=== PATIENT | male | born 1945 | race Caucasian/White ===

== ENCOUNTER → 2017-04-11 | Outpatient (CLI) | payer MEDICARE, BC ==
[~2017-04-11] MED LIST: ASPI1TAB PO; ATOR1TAB21 PO; CARV6.25 PO; CITA20TA4 PO; CITRTAB15 PO; FERR240T PO; INSUHUMDS SC; KRIL300C PO; LANTINJ4 SC; LOSA50TA20 PO; LUTE20TA PO; METF10004 PO; NOVOINJ3 SC; PROBCAP4 PO; VITA-121 PO; VITA100072 PO
[2017-04-11 10:54] LABS: ANION GAP 7 MEQ/L (8-16); BLOOD UREA NITROGEN 15 MG/DL (7-18); CALCIUM LEVEL 9.2 MG/DL (8.8-10.2); CARBON DIOXIDE LEVEL 30 MEQ/L (21-32); CHLORIDE LEVEL 101 MEQ/L (98-107); CREATININE FOR GFR 0.86 MG/DL (0.70-1.30); GLOMERULAR FILTRATION RATE > 60.0 (>42); GLUCOSE, FASTING 120 MG/DL (83-110); SODIUM LEVEL 138 MEQ/L (136-145)
--- NOTE | 2017-04-11 11:51 | REP ---
PA and lateral chest: There are no comparisons. The lung araya are clear. The cardiac size is normal The archana, mediastinum, and bony thorax are unremarkable. Impression: Negative PA and lateral chest. Signed by Jimi Lucero MD 04/11/2017 11:42 A
--- NOTE | 2017-04-11 19:21 | ECGEPIP ---
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 No prior tracing. Clinical correlation advised Electronically Signed On 04-11-2017 19:21:20 EDT by Unruly Osorio
== END ==
LOC: M LAB 09:57
PROVIDERS: ATTEND Ophthalmology
DX: Z01.818 Encounter for other preprocedural examination (principal); H25.13 Age-related nuclear cataract, bilateral

== ENCOUNTER 2017-05-05 10:19 | Day surgery (SDC) | payer MEDICARE, BC ==
--- NOTE | 2017-04-27 10:54 | CR ---
DATE OF CONSULTATION: 04/26/[address] Sykes on Toño oBwman for cataract extractions scheduled 05/09/2017 and 05/16/2017. To Dr. Sykes thank you for asking me to see Mr. Toño Bowman in preoperative consultation prior to his cataract extractions. As you know, Mr. Crystal is a 71-year-old gentleman with past medical history of coronary artery disease, insulin dependent type 2 diabetes who reports he is in his usual state of good health and denying any chest pain, palpitations, syncope or presyncope. The patient does have type 2 diabetes, diabetes. He is on Lantus and Humlog. He brings with him his own blood sugars. He does have hypoglycemic spells several times a month. He takes short-acting insulin Humalog only at supper time. His hypoglycemic spells always occur between supper time and the next morning. He is able to take sugar tabs with good results. Emergency Medical Service (EMS) has not been called. They do not have glucagon in the home The patient is quite inactive. He has chronic hip pain. Surgery has been recommended; but because he is felt to be high risk, he has not pursued this. The patient also has a history of a subarachnoid bleed in 2011. This occurred shortly after his angiogram and stents and he was on aspirin and Plavix at the same time. He reports that it is difficult to decipher how much of his left hip instability is related to arthritis versus residual stroke from the subarachnoid bleed. The patient did have a cortisone shot several months ago with Dr. Talbert and dramatically the pain in the left hip has improved. The patient does have the coronary artery disease. He denies any chest pain, palpitations, syncope or presyncope. The patient does follow with cardiology just annually The patient does have intermittent depressive symptoms regarding his multiple medical problems. He is on citalopram and feels this is adequate. The patient has history of iron deficiency anemia. He a high recent esophagogastroduodenoscopy (EGD) and colonoscopies 04/05/2016 with no significant pathology. He had been considered to have possible inflammatory bowel disease in the past, but this was not found on most recent scoped The patient's review of systems otherwise negative. Denying any fevers or chills, chest pain or shortness of breath, nausea, vomiting, change in bowels. PAST MEDICAL HISTORY: 1. Coronary artery disease 09/06, presenting with a positive stress test, treated with percutaneous transluminal coronary angioplasty (PTCA) with stents. Last stress test 01/24/2013, normal ejection fraction. 2. 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 Hypertension. 4. Type 2 diabetes insulin dependent. 5. Hyperlipidemia. 6. Depression. 7. Tobacco abuse, quit 10/06 8. Alcohol abuse, quit many years ago. 9. Obstructive sleep apnea 10. Vitamin D deficiency. 11. Left hip osteoarthritis, degenerative joint disease (DJD) advanced. not felt to be a good candidate for hip surgery. 12. Iron deficiency anemia (CORTNEY) with normal esophagogastroduodenoscopy (EGD) and colonoscopy 04/05/2016, questionable Crohn disease in the past. 13. Right arthroscopic meniscus repair 1993. 14. Tonsillectomy 1991 with soft palate removal due to sleep apnea. PATIENT'S MEDICATIONS: He is on acidophilus one daily, Dulce 180 mg by mouth daily as needed, baby aspirin 81 mg daily, atorvastatin 21 mg daily, B12 1 mg daily, carvedilol 6.25 kg one by mouth twice a day, citalopram 20 mg daily, Citrucel 500 mg tabs two by mouth twice a day, ferrous sulfate one daily, Humalog 14-20 units prior to dinner time, Lantus 44 units every p.m., losartan 50 mg daily, lutein daily, metformin 1000 mg twice a day, vitamin D 2000 international units daily. ALLERGIES: PENICILLIN. FAMILY HISTORY: Father of heart disease at 84; he had diabetes. Mother of heart disease at 54. Brother a heart disease at 54. Another brother at 45, a sister had breast cancer. SOCIAL HISTORY: The patient is retired from [employer]. He is , three adult children, two in [place] one locally. He is a former smoker and alcohol user, presently none. PHYSICAL EXAMINATION: He is a thin male in no acute distress. VITAL SIGNS: Weight 208 with a body mass index (BMI) of 28. His oxygen saturation is 95%, blood pressure 108/60, his heart rate is 62. GENERAL: No acute distress. HEAD: Normocephalic. Neck is supple. Pupils equal, reactive to light. He does wear eyeglasses. Sclerae anicteric. Conjunctivae not injected. Vision grossly intact. Tympanic membranes normal. Tongue midline. Posterior pharynx without inflammation. NECK: Supple. No thyromegaly, jugular venous distension (JVD) , carotid bruits. RESPIRATORY: Clear to auscultation, resonant to percussion. CARDIOVASCULAR: Regular rate and rhythm. No murmur, rub or gallop. ABDOMEN: Normoactive bowel sounds, soft, nontender. EXTREMITIES: No cyanosis, clubbing or edema. DERMATOLOGIC: Multiple seborrheic keratoses specifically on his back. He also has a resolving blistering rash right foot and back with a scant amount of scarring. LABORATORY DATA: 04/26/2017, the patient has a normal med profile except for sugar 147, normal complete blood count (CBC). His A1c is 6.3. His thyroid simulating hormone (TSH) is 1.5. Electrocardiogram (EKG) 04/11/2017: Sinus bradycardia rate of 58, nonspecific ST-T wave changes, axis of 85, normal MA, QRS, QTC intervals. Chest x-ray 04/11/2017: No acute disease. IMPRESSION: Mr. Toño Bowman is a 71-year-old gentleman with multiple cardiovascular risk factors including previous coronary artery disease, type 2 diabetes, hypertension, hyperlipidemia, positive family history and personal age, has no signs or symptoms indicative of cardiovascular ischemia and is felt to be at low risk for cardiovascular complications from the proposed surgical intervention, which can be further minimized by the followin. Diabetes 2, insulin dependent. He has had multiple hypoglycemic spells. I have prescribed glucagon and discussed the appropriate use of this. I will lower his usual insulin to Lantus, but only have him take his usual Lantus insulin to 40 units; but the evening prior to surgery, he will only take 20 units. I will have him hold his short acting insulin before surgery; because of recent hypoglycemia, I will direct him not to take more than 10 to 18 units prior to the evening meal. I will bring her back in six weeks to review. His A1c is excellent perhaps lower than it needs to be. He will hold his metformin for two days prior to surgical intervention. 2. Coronary artery disease clinically asymptomatic. Take carvedilol a.m. of surgery. Take losartan as usual the p.m. before surgery. Hold aspirin the a.m. of surgery. 3. Hypertension as above. 4. Iron deficiency anemia (CORTNEY) resolved. I will lower iron to every other day. I will check a complete blood count (CBC) next visit. 5. Osteoarthritis, degenerative joint disease (DJD), clinically compensated after having had a cortisone injection. He will follow with orthopedics as needed as approved the perioperative use of Tylenol. 6. Depression. I have approved the use of citalopram as usual, the evening prior to surgery 7. Vitamin D deficiency. Will hold this the a.m. of surgery. 8. History of hemorrhagic stroke. No evidence of recurrence. He does continue an aspirin, but not Plavix. I have encouraged regular activity and strengthening. He has a new walker and will pursue this. Thank you very much for this consultation. Please call with questions or concerns.
[~2017-05-05] VITALS: Ht 182.9 cm; Wt 95.7 kg
[~2017-05-05 10:19] MED LIST changes: +ACETYLCHOLINE OPHTH SOLN 1% 2ML (MIOCHOL-E) As Ordered ONE; +BALANCED SALT IRRIGATION SOLUTION 500ML BAG (FOR OR EYE MACHINE) As Ordered ONE; +DUOVISC (0.50ML VISCOAT/0.55ML PROVISC) OPHTH KIT As Ordered ONE; +LIDOCAINE 0.75%/EPINEPHRINE 0.025% IN BSS 1ML SYR INTRACAMERAL (OR ONLY) As Ordered ONE; +LR 500 ML IV ONE; +MIDAZOLAM INJ 2 MG/2 ML VIAL (J2250) As Ordered ONE; +OFLOXACIN 0.3 % (OCUFLOX) OPTH SOL 5ML XX ONE; +PHENYLEPHRINE 2.5% OPHTH SOL 2ML XX ONE; +POVIDONE-IODINE 5% OPHTH PREP SOL 30ML As Ordered ONE; +PROPARACAINE 0.5% OPHTH SOL 15ML XX ONE; +TROPICAMIDE 1% OPHTH SOLN 2ML XX ONE; +fentaNYL 100 MCG/2 ML INJECTION (J3010) As Ordered ONE
[2017-05-05 12:35] VITALS: BP 144/84
[2017-05-05] MEDS ORDERED: CEFUROXIME 1MG/0.1ML INTRACAMERAL INJ As Ordered ONE (14:28)
[2017-05-05] MEDS ORDERED: LIDOCAINE 4% TOPICAL SOLN 50 ML BTL TOP ONE (17:29)
--- NOTE | 2017-05-06 07:31 | RO ---
DATE OF PROCEDURE: 05/05/2017 PREOPERATIVE DIAGNOSIS: Visually significant nuclear sclerotic cataract right eye. POSTOPERATIVE DIAGNOSIS: Visually significant nuclear sclerotic cataract right eye. PROCEDURE: Cataract extraction with use of phacoemulsification, and placement of intraocular lens, AU00T0, 21.5 diopter. SURGEON: Dillon Sykes DO TECHNICAL DEVELOPER: ANESTHESIA: Local with monitored anesthesia care (MAC). COMPLICATIONS: None. POSTOPERATIVE CONDITION: Stable. INDICATION FOR SURGERY: Blurred vision right eye affecting patient's activities of daily living. DESCRIPTION OF PROCEDURE: The patient was seen in the preoperative area and properly identified. The correct operative eye was identified and marked. Attention was turned to that eye. The patient received topical antibiotics in the preoperative area. The patient then received topical dilating drops consisting of Tropicamide and Phenylephrine. The patient was then transferred to the operating room. The correct side was re-identified. The patient received topical anesthetics and antibiotics on the surface of the eye. The eye was prepped and draped in a sterile fashion. The upper and lower eyelids were isolated with Tegaderm tape, and the lids were held open with an adjustable speculum. Using a sideport blade, a paracentesis incision was made. Intraocular preservative-free lidocaine was then injected into the anterior chamber. Viscoelastic was then injected into the anterior chamber through the paracentesis. Using a 2.65 mm sharp-tipped keratome, the anterior chamber was entered via a temporal clear corneal incision. A continuous curvilinear capsulorrhexis was created with the aid of a 26g cystotome and utrata forceps. Hydrodissection was performed with balanced salt solution (BSS) on a blunt cannula until the nucleus was freely mobile. The crystalline lens was phacoemulsified and aspirated. Additional cohesive viscoelastic was placed into the capsular bag to deepen it. An AU00T0, 21.5 diopter lens was placed into the capsular bag and confirmed by visualizing the continuous curvilinear capsulorrhexis. Additional irrigation and aspiration was used to remove cortical material and remaining viscoelastic. The clear corneal incision was hydrated with BSS on a blunt cannula. The lens was well positioned. The incisions were then tested for leaks and found to be negative. The eye was then palpated for appropriate pressure and adjusted accordingly with BSS. The eyelid speculum was carefully removed. A shield was placed over the eye. The patient tolerated the procedure well and was discharged to the recovery unit in a stable condition. EZEQUIEL
== END 2017-05-05 12:55 | disposition home or self-care (01) ==
LOC: M SDC 10:19
PROVIDERS: ATTEND Ophthalmology
DX: H25.11 Age-related nuclear cataract, right eye (principal); I25.10 Atherosclerotic heart disease of native coronary artery without angina pectoris; E11.9 Type 2 diabetes mellitus without complications; M16.12 Unilateral primary osteoarthritis, left hip; I69.998 Other sequelae following unspecified cerebrovascular disease; D50.9 Iron deficiency anemia, unspecified; I11.9 Hypertensive heart disease without heart failure; E78.5 Hyperlipidemia, unspecified; F32.9 Major depressive disorder, single episode, unspecified; G47.30 Sleep apnea, unspecified; E55.9 Vitamin D deficiency, unspecified; Z79.82 Long term (current) use of aspirin; Z79.4 Long term (current) use of insulin; Z95.5 Presence of coronary angioplasty implant and graft; Z87.891 Personal history of nicotine dependence
CPT/HCPCS: 66984; J2250; J3010; V2632

== ENCOUNTER 2017-05-26 06:38 | Day surgery (SDC) | payer MEDICARE, BC ==
[~2017-05-26] VITALS: Ht 182.9 cm; Wt 95.7 kg
[~2017-05-26 06:38] MED LIST changes: -ACETYLCHOLINE OPHTH SOLN 1% 2ML (MIOCHOL-E) As Ordered ONE; -BALANCED SALT IRRIGATION SOLUTION 500ML BAG (FOR OR EYE MACHINE) As Ordered ONE; -DUOVISC (0.50ML VISCOAT/0.55ML PROVISC) OPHTH KIT As Ordered ONE; -LIDOCAINE 0.75%/EPINEPHRINE 0.025% IN BSS 1ML SYR INTRACAMERAL (OR ONLY) As Ordered ONE; -LR 500 ML IV ONE; -MIDAZOLAM INJ 2 MG/2 ML VIAL (J2250) As Ordered ONE; -OFLOXACIN 0.3 % (OCUFLOX) OPTH SOL 5ML XX ONE; -PHENYLEPHRINE 2.5% OPHTH SOL 2ML XX ONE; -POVIDONE-IODINE 5% OPHTH PREP SOL 30ML As Ordered ONE; -PROPARACAINE 0.5% OPHTH SOL 15ML XX ONE; -TROPICAMIDE 1% OPHTH SOLN 2ML XX ONE; -fentaNYL 100 MCG/2 ML INJECTION (J3010) As Ordered ONE
[2017-05-26] MEDS ORDERED: LR 1,000 ML IV SCH (06:45)
[2017-05-26] MEDS ORDERED: CEFUROXIME 1MG/0.1ML INTRACAMERAL INJ As Ordered ONE (06:49)
[2017-05-26] MEDS ORDERED: POVIDONE-IODINE 5% OPHTH PREP SOL 30ML As Ordered ONE (06:49)
[2017-05-26] MEDS ORDERED: ACETYLCHOLINE OPHTH SOLN 1% 2ML (MIOCHOL-E) As Ordered ONE (06:49)
[2017-05-26] MEDS ORDERED: BALANCED SALT IRRIGATION SOLUTION 500ML BAG (FOR OR EYE MACHINE) As Ordered ONE (06:49)
[2017-05-26] MEDS ORDERED: DUOVISC (0.50ML VISCOAT/0.55ML PROVISC) OPHTH KIT As Ordered ONE (06:50)
[2017-05-26] MEDS ORDERED: LIDOCAINE 0.75%/EPINEPHRINE 0.025% IN BSS 1ML SYR INTRACAMERAL (OR ONLY) As Ordered ONE (06:50)
[2017-05-26] MEDS ORDERED: PHENYLEPHRINE 2.5% OPHTH SOL 2ML OS ONE (07:00)
[2017-05-26] MEDS ORDERED: TROPICAMIDE 1% OPHTH SOLN 2ML OS ONE (07:00)
[2017-05-26] MEDS ORDERED: PROPARACAINE 0.5% OPHTH SOL 15ML OS ONE (07:00)
[2017-05-26] MEDS ORDERED: OFLOXACIN 0.3 % (OCUFLOX) OPTH SOL 5ML OS ONE (07:00)
[2017-05-26] MEDS ORDERED: OFLOXACIN 0.3 % (OCUFLOX) OPTH SOL 5ML As Ordered ONE (07:18)
[2017-05-26] MEDS ORDERED: TETRACAINE 0.5% OPHTH SOLN 4ML As Ordered ONE (07:19)
[2017-05-26] MEDS ORDERED: fentaNYL 100 MCG/2 ML INJECTION (J3010) As Ordered ONE (07:47)
[2017-05-26] MEDS ORDERED: MIDAZOLAM INJ 2 MG/2 ML VIAL (J2250) As Ordered ONE (07:47)
[2017-05-26 09:00] VITALS: BP 115/72
--- NOTE | 2017-05-27 15:24 | RO ---
DATE OF PROCEDURE: 05/26/2017 PREOPERATIVE DIAGNOSIS: Visually significant nuclear sclerotic cataract left eye. POSTOPERATIVE DIAGNOSIS: Visually significant nuclear sclerotic cataract left eye. PROCEDURE: Cataract extraction with use of phacoemulsification, and placement of intraocular lens, AU00T0, 20.5 D, left eye. SURGEON: Dillon Sykes DO SEARCH MARKETING ANALYST: ANESTHESIA: Local with monitored anesthesia care (MAC). COMPLICATIONS: None. POSTOPERATIVE CONDITION: Stable. INDICATION FOR SURGERY: Blurred vision left eye affecting patient's activities of daily living. DESCRIPTION OF PROCEDURE: The patient was seen in the preoperative area and properly identified. The correct operative eye was identified and marked. Attention was turned to that eye. The patient received topical antibiotics in the preoperative area. The patient then received topical dilating drops consisting of Tropicamide and Phenylephrine. The patient was then transferred to the operating room. The correct side was re-identified. The patient received topical anesthetics and antibiotics on the surface of the eye. The eye was prepped and draped in a sterile fashion. The upper and lower eyelids were isolated with Tegaderm tape, and the lids were held open with an adjustable speculum. Using a sideport blade, a paracentesis incision was made. Intraocular preservative-free lidocaine was then injected into the anterior chamber. Viscoelastic was then injected into the anterior chamber through the paracentesis. Using a 2.65 mm sharp-tipped keratome, the anterior chamber was entered via a temporal clear corneal incision. A continuous curvilinear capsulorrhexis was created with the aid of a 26g cystotome and utrata forceps. Hydrodissection was performed with balanced salt solution (BSS) on a blunt cannula until the nucleus was freely mobile. The crystalline lens was phacoemulsified and aspirated. Additional cohesive viscoelastic was placed into the capsular bag to deepen it. An AU00T0, 20.5 D was placed into the capsular bag and confirmed by visualizing the continuous curvilinear capsulorrhexis. Additional irrigation and aspiration was used to remove cortical material and remaining viscoelastic. The clear corneal incision was hydrated with BSS on a blunt cannula. The lens was well positioned. The incisions were then tested for leaks and found to be negative. The eye was then palpated for appropriate pressure and adjusted accordingly with BSS. The eyelid speculum was carefully removed. A shield was placed over the eye. The patient tolerated the procedure well and was discharged to the recovery unit in a stable condition. EZEQUIEL
== END 2017-05-26 09:00 | disposition home or self-care (01) ==
LOC: M SDC 06:38
PROVIDERS: ATTEND Ophthalmology
DX: H25.12 Age-related nuclear cataract, left eye (principal); E11.9 Type 2 diabetes mellitus without complications; I10 Essential (primary) hypertension; R00.1 Bradycardia, unspecified; E78.00 Pure hypercholesterolemia, unspecified; K50.90 Crohn's disease, unspecified, without complications; K57.32 Diverticulitis of large intestine without perforation or abscess without bleeding; D50.9 Iron deficiency anemia, unspecified; R23.3 Spontaneous ecchymoses; M16.0 Bilateral primary osteoarthritis of hip; R29.898 Other symptoms and signs involving the musculoskeletal system; L40.9 Psoriasis, unspecified; F32.9 Major depressive disorder, single episode, unspecified; Z88.0 Allergy status to penicillin; Z91.040 Latex allergy status; Z79.899 Other long term (current) drug therapy; Z79.82 Long term (current) use of aspirin; Z79.4 Long term (current) use of insulin; Z79.84 Long term (current) use of oral hypoglycemic drugs; Z95.818 Presence of other cardiac implants and grafts; Z87.891 Personal history of nicotine dependence
CPT/HCPCS: 66984; J2250; J3010; V2632

== ENCOUNTER → 2018-06-28 | Outpatient (CLI) | payer MEDICARE, BC | LOC: M RAD 08:15 | DX: Z12.2 Encounter for screening for malignant neoplasm of respiratory organs (principal); Z87.891 Personal history of nicotine dependence | CPT/HCPCS: G0297 ==

== ENCOUNTER → 2019-02-20 | Outpatient (REF) | payer MEDICARE, BC ==
[~2019-02-20] MED LIST changes: -ASPI1TAB PO; +ASPI81TA26 PO; -CITA20TA4 PO; +CITA20TA6 PO; -LOSA50TA20 PO; +LOSA50TA88 PO; +VITA100018 PO; -VITA100072 PO
== END ==
LOC: M LAB REF 16:56
PROVIDERS: ATTEND Physician Assistant Medical
DX: R19.7 Diarrhea, unspecified (principal)

== ENCOUNTER → 2019-02-27 | Outpatient (REF) | payer MEDICARE, BC | LOC: M LAB REF 16:30 | PROVIDERS: ATTEND Internal Medicine | DX: R19.7 Diarrhea, unspecified (principal) ==

== ENCOUNTER → 2019-02-28 | Outpatient (REF) | payer MEDICARE, BC ==
[2019-03-03 00:06] LABS: FATS NEUTRAL Normal (.); FATS TOTAL Normal (.)
== END ==
LOC: M LAB REF 13:29
PROVIDERS: ATTEND Internal Medicine
DX: R19.7 Diarrhea, unspecified (principal)

== ENCOUNTER → 2019-03-08 | Outpatient (REF) | payer MEDICARE, BC | LOC: M LAB REF 15:29 | PROVIDERS: ATTEND Internal Medicine | DX: R19.7 Diarrhea, unspecified (principal); K50.90 Crohn's disease, unspecified, without complications ==

== ENCOUNTER → 2019-07-20 | Outpatient (CLI) | payer MEDICARE, BC ==
--- NOTE | 2019-07-31 02:49 | ECWPNPC ---
PATIENT NAME: MARICHUY VALDEZ : 1945 GENDER: MALE VISIT DATE: 07/20/2019 DISCHARGE DATE: 07/20/19 1055 VISIT LOCKED DATE TIME: PHYSICIAN: EL HOLLAND MD RESOURCE: EL HOLLAND MD REASON FOR APPOINTMENT 1. HIP HISTORY OF PRESENT ILLNESS PAIN SCREENING: PATIENT HAS A COMPLAINT OF ACUTE OR CHRONIC PAIN :YES 73 YEAR OLD MALE PATIENT WITH A HISTORY OF CHRONIC RIGHT HIP PAIN. THE PATIENT DESCRIBES THE PAIN ACHING, SHARP, AND CONTINUOUS WITH A PAIN SCORE OF 5-9/10 DEPENDING ON PHYSICAL ACTIVITY. THE PATIENT STATES HIS PAIN HAS STARTED APPROXIMATELY 2 YEARS AGO. THE PATIENT SAYS HE IS BEING SEEN BY AN ORTHOPEDIC WHO IS WANTING TO DO SURGERY, BUT THE PATIENT DOES NOT WANT TO AT THIS TIME. THE PATIENT SAYS HIS PAIN IS CAUSING BALANCE ISSUES AND IS AFFECTING HIS ABILITY TO PERFORM HIS DAILY ACTIVITIES SUCH MOVING AROUND, COOKING, AND CLEANING. THE PATIENT SAYS HE HAS TRIED TRAMADOL IN THE PAST, BUT IT CAUSED SLEEPINESS FOR HIM. THE PATIENT SAYS HE IS CURRENTLY USING CBD OIL FOR HIS PAIN. THE PATIENT MENTIONS HE HAS A HISTORY OF CEREBRAL HEMORRHAGE AND HAS HAD A STENT PLACEMENT. PATIENT DENIES UNEXPLAINABLE WEIGHT LOSS, FEVER, CHILLS, NEW CHANGES ON HIS URINARY OR BOWEL CONTROL. FALL RISK SCREENING: SCREENING :NO FALLS REPORTED IN THE LAST YEAR CURRENT MEDICATIONS TAKING HUMALOG 100 UNIT/ML SOLUTION DIRECTED SUBCUTANEOUS 22 UNITS AT LUNCH, 30 UNITS AT DINNER TAKING LANTUS 100 UNIT/ML SOLUTION DIRECTED SUBCUTANEOUS BEFORE BEDTIME TAKING CITALOPRAM HYDROBROMIDE 20 MG TABLET 1 TABLET ORALLY ONCE A DAY TAKING LIPITOR 20 MG TABLET 1 TABLET ORALLY ONCE A DAY TAKING CARVEDILOL 6.25 MG TABLET 1 TABLET ORALLY DAILY TAKING CLOBETASOL PROP EMOLLIENT BASE 0.05 % CREAM 1 APPLICATION TO AFFECTED AREA EXTERNALLY DIRECTED TAKING AZELASTINE HCL 0.1 % SOLUTION 2 PUFFS IN EACH NOSTRIL NASALLY TWICE A DAY TAKING TYLENOL EXTRA STRENGTH 500 MG TABLET 1 TABLET NEEDED ORALLY EVERY 8 HRS NEEDED TAKING MAY HAVE - - 1 DROP CBD OIL ONCE DAILY MEDICATION LIST REVIEWED AND RECONCILED WITH THE PATIENT PAST MEDICAL HISTORY HYPERTENSION HYPERLIPIDEMIA DEPRESSION DIABETES CHRONIC HIP PAIN ALLERGIES SEASONAL IC PENICILLIN (FOR ALLERGIES USE ONLY) LATEX (FOR ALLERGY USE ONLY): ADHESIVES TAPES, ETC SURGICAL HISTORY TORN MENISCUS 02/1996 TONSLLECTOMY 10/1996 CEREBRAL HEMORRHAGE 02/2012 STENTS PLACED 11/2011 FAMILY HISTORY FATHER: , DIAGNOSED WITH DIABETES, HYPERTENSION MOTHER: , UNSPECIFIED HEART DISEASE SIBLINGS: DIABETES, UNSPECIFIED HEART DISEASE, OTHER MALIGNANT NEOPLASM OF UNSPECIFIED SITE PT HAS 2 SIBLINGS THAT FROM HEART ATTACK, PT HAS ONE SIBLING ALIVE THAT HAS HISTORY OF DIABETES AND BREAST CANCER. SOCIAL HISTORY GENERAL: TOBACCO USE ARE YOU A:NONSMOKER HOUSING: OWNS HOME. EDUCATION LEVEL OF EDUCATION:HIGH SCHOOL LANGUAGE LANGUAGES SPOKEN:FRISIAN RECREATIONAL DRUG USE DRUG USE?NO LEARNING BARRIERS / SPECIAL NEEDS BARRIERS TO LEARNING?NO HEARING IMPAIRED?NO VISION IMPAIRED?YES :CORRECTIVE LENSES COGNITIVELY IMPAIRED?NO PT HAS DIFFICULTY WRITING DUE TO RESULT OF CEREBRAL HEMORRHAGE READINESS TO LEARN?YES PAIN CLINIC PFS, CLERGY, PUBLIC HEALTH REFERRALS HAS THE PATIENT BEEN EDUCATED REGARDING HIS/HER PLAN OF CARE?YES HAS THE PATIENT BEEN EDUCATED REGARDING PAIN, THE RISK FOR PAIN, THE IMPORTANCE OF EFFECTIVE PAIN MANAGEMENT, AND THE PAIN ASSESSMENT PROCESS?YES LATEX QUESTIONNAIRE LATEX ALLERGY : HAVE YOU EVER DEVELOPED ANY TYPE OF REACTION AFTER HANDLING LATEX PRODUCTS SUCH RUBBER GLOVES, CONDOMS, DIAPHRAGMS, BALLOONS, SOCKS, OR UNDERWEAR?YES - PLEASE INDICATE :OTHER (DOCUMENT IN NOTES) PT STATES HE IS ALLERGIC TO ADHESIVES, TAPES, BANDAIDS, ETC CAFFEINE CAFFEINE USE?YES 1 CUP CAFFEINE DAILY ADVANCE DIRECTIVE ADVANCE DIRECTIVE DISCUSSED WITH PATIENT:YES HCP ON FILE AT [facility] JERAMY VALDEZ- [phone] CESAR ALBRIGHT -DAUGHTER [phone] SABIANIST SABIANIST NO ANGLICAN BELIEFS THAT WOULD IMPACT HEALTH CARE. MARITAL STATUS: . 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 REVIEWED WITH PATIENT 07/20/19 0945 BV. HOSPITALIZATION/MAJOR DIAGNOSTIC PROCEDURE SEE ABOVE SURGERIES REVIEW OF SYSTEMS REVIEWED BY: PROVIDER: EL HOLLAND MD . CONSTITUTIONAL: ANY CHANGE IN YOUR MEDICAL CONDITION? NO . CHILLS NO . FEVER NO . INFECTION: DO YOU HAVE NEW INFECTIONS? NO . DO YOU HAVE HISTORY OF MRSA? NO . MUSCULOSKELETAL: ANY NEW PATTERNS OF PAIN OR NUMBNESS? YES, INCREASING PAIN IN RIGHT HIP . SYTEMIC LUPUS NO . GASTROENTEROLOGY: ANY NEW CHANGE IN BOWEL CONTROL? NO . BARRETTS ESOPHAGUS NO . CIRRHOSIS NO . HEPATITIS NO . LIVER FAILURE NO . ACID REFLUX NO . UNEXPLAINED WEIGHT LOSS NO . GENITOURINARY: ANY NEW CHANGE IN BLADDER CONTROL? YES . IS THERE A CHANCE YOU COULD BE ? NO . HEMATOLOGY/LYMPH: DO YOU TAKE ANY BLOOD THINNERS? (FOR EXAMPLE- COUMADIN, PLAVIX, AGGRENOX, PLATEL, PRADAXA, OR XARELTO) NO . WHEN WAS YOUR LAST DOSE? DATE: TIME: . LOW PLATELET COUNT NO . SICKLE CELL DISEASE NO . VON WILLIEBRANDS NO . FACTOR V LEIDEN NO . THALLASEMIA NO . ANEMIA NO . EASY BRUISING NO . NEUROLOGY: HAVE YOU FALLEN IN THE PAST 12 MONTHS? YES, DUE TO LOSS OF BALANCE . ANY NEW EXTREMITY NUMBNESS OR WEAKNESS? NO . HEAD INJURY NO . DEMENTIA NO . CEREBRAL PALSY NO . MULTIPLE SCLEROSIS NO . DIZZINESS NO . HEADACHE NO . STROKES NO . VERTIGO NO . CARDIOLOGY: DO YOU HAVE A PACEMAKER OR DEFIBRILLATOR? NO . ANGINA NO . HEART ATTACK NO . HEART SURGERY STENTS PLACED . CONGESTIVE HEART FAILURE/FLUID OVERLOAD NO . CHEST PAIN NO . HIGH BLOOD PRESSURE ON MEDICATION(S) . IRREGULAR HEART BEAT NO . RESPIRATORY: HAVE YOU BEEN SICK IN THE PAST WEEK? NO . FEVER NO . FLU LIKE SYMPTOMS? NO . CPAP NO . BYPAP NO . ASTHMA NO . EMPHYSEMA NO . CHRONIC LUNG DISEASES NO . SHORTNESS OF BREATH ON EXERTION NO . COUGH NO . SNORING NO . INTEGUMENTARY: DO YOU HAVE ANY RASHES OR OPEN SORES? YES, SMALL BUMPS TO BACK THAT HE GETS ON OCCASION THAT HE TREATS WITH STEROID CREAM . ALLERGIC/IMMUNO: ARE YOU ALLERGIC TO IV DYE? NO . ANY NEW ALLERGIES? NO . PSYCHIATRIC: DO YOU HAVE THOUGHTS OF HURTING YOURSELF OR SOMEONE ELSE? NO . ARE YOU ABUSED, NEGLECTED, OR IN AN UNSAFE ENVIRONMENT? NO . ENDOCRINOLOGY: ARE YOU DIABETIC? YES, ON MEDICATION . THYROID DISORDER NO . OTHER: DO YOU NEED ANY PRESCRIPTIONS? NO . IF YES, PLEASE LIST: ____ . ANY NEW PROBLEMS WITH YOUR MEDICATIONS? NO . WHEN DID YOU LAST EAT? ____ . WHEN DID YOU LAST DRINK? ____ . WHAT DID YOU LAST DRINK? ____ . NAME OF PERSON DRIVING YOU HOME? ____ . DO YOU HAVE ANY OTHER QUESTIONS OR CONCERNS NO . VITAL SIGNS WT 221.2 LBS, HT 70 IN, BMI 31.74 INDEX, BP 115/68 MM HG, HR 66 /MIN, RR 18 /MIN, TEMP 97.2 F, OXYGEN SAT % 99%, NA INITIALS SC 09:18, REVIEWED BY: BV. EXAMINATION GENERAL EXAMINATION: PATIENT IS ALERT O X 3 AND COOPERATIVE. LUNGS CLEAR, TO AUSCULTATION. HEART: NO MURMURS OR GALLOPS; FACIAL CRANIAL NERVES ARE GROSSLY NORMAL. GOOD SYMMETRY OF FACIAL MUSCLE MOVEMENT. NORMAL VISUAL CARRASCO. PATIENT IS USING A WALKER TO AMBULATE. PATIENT HAS BALANCE ISSUES. RIGHT LEG IS WEAKER AT EXTENSION AND FLEXION. MOVEMENT OF RIGHT HIP CREATES TENDERNESS OVER THE RIGHT INGUINAL AND RIGHT THIGH AREA. RIGHT HIP X-RAY DONE ON 04/01/2016 SHOWS OSTEOPHYTOSIS AND SUBCHONDRAL SCLEROSIS. ASSESSMENTS RIGHT HIP PAIN - M25.551 (PRIMARY) OSTEOARTHRITIS OF RIGHT HIP, UNSPECIFIED OSTEOARTHRITIS TYPE - M16.[address] HIP PA[address] SCAN : HIP, [id number] CLINICAL NOTES: WE DISCUSSED SEVERAL ISSUES WITH MR. VALDEZ'S PAIN MANAGEMENT CASE. I AM ORDERING FOR A HIP CT SCAN TO RULE OUT OSTEOARTHRITIS. I AM REFERRING THE PATIENT TO PALLIATIVE CARE FOR MEDICATION MANAGEMENT AND TO CONSIDER MEDICAL MARIJUANA. THE PATIENT IS NOT INTERESTED IN OPIOIDS AND WOULD LIKE REGULAR MEDICATION MANAGEMENT. I DISCUSSED WITH THE PATIENT ABOUT THE OPTION OF A RIGHT HIP STEROID INJECTION OR COOL RADIOFREQUENCY, AND THE PATIENT SAID HE WOULD LIKE SOME TIME TO THINK ABOUT IT. THE PATIENT WILL FOLLOW UP WITH THE NURSE PRACTITIONER FOR MEDICATION IN SEVERAL WEEKS. INSTRUCTIONS WERE GIVEN, QUESTIONS WERE ANSWERED, PATIENT REPORTS UNDERSTANDING AND AGREES WITH THE PLAN. I, ANTHONY ROJAS, DOCUMENTED THE ABOVE INFORMATION ACTING A SCRIBE FOR DR. HOLLAND. I HAVE REVIEWED THE ABOVE DOCUMENT, WRITTEN BY ANTHONY BRAN AND I VERIFY THAT IT IS ACCURATE. DEAR ROMARIO SHORT MD: THANK YOU FOR YOUR KIND REFERRAL OF MARICHUY VALDEZ. IF YOU WANT TO DISCUSS HIS CASE WITH ME PLEASE CALL ME AT THE PAIN CENTER AT [phone]. SINCERELY, EL HOLLAND MD PAIN MEDICINE . OSTEOARTHRITIS OF RIGHT HIP, UNSPECIFIED OSTEOARTHRITIS TYPE CT SCAN : HIP, [id number] PROCEDURE CODES FA211 ESTABILISHED PATIENT [facility] FACILITY CHARGE G8427 CURRENT MEDS W/DOSAGES DOCUMENTED G8730 PAIN ASSESS POS TOOL F/U PLAN DOC DISPOSITION & COMMUNICATION FOLLOW UP REASON: ORDER CT SCAN/ REFER PALLIATIVE CARE ELECTRONICALLY SIGNED BY EL HOLLAND MD, MD ON 07/30/2019 AT 12:17 PM EST DISCLAIMER : THIS IS A VISIT SUMMARY EXTRACTED FROM THE [employer] CHART. IT IS NOT A COPY OF THE [employer] PROGRESS NOTE. EZEQUIEL
== END ==
LOC: M PAIN 09:00
PROVIDERS: ATTEND Anesthesiology
DX: M25.551 Pain in right hip (principal); M16.11 Unilateral primary osteoarthritis, right hip; G89.29 Other chronic pain; I10 Essential (primary) hypertension; E78.5 Hyperlipidemia, unspecified; Z86.59 Personal history of other mental and behavioral disorders; E11.9 Type 2 diabetes mellitus without complications; Z88.0 Allergy status to penicillin; Z91.040 Latex allergy status; Z79.4 Long term (current) use of insulin; Z79.899 Other long term (current) drug therapy

== ENCOUNTER → 2019-07-23 | Outpatient (CLI) | payer MEDICARE, BC ==
--- NOTE | 2019-07-23 13:59 | REP ---
Clinical: Right hip pain. Technique: Axial noncontrast images through the right hip with coronal and sagittal re-formations. Findings: Extensive severe osteoarthritic degenerative changes are appreciated. Findings include joint space obliteration, subchondral heterogeneity and cystic changes to the femoral head and acetabulum as well as chondrocalcinosis and osteophytosis. Coronal views also demonstrate superior displacement to the femoral head. No acute fracture dislocation. Surrounding soft tissues are grossly unremarkable. Impression: Severe advanced osteoarthritic degenerative changes. Electronically Signed by Rigoberto Cameron MD 07/23/2019 01:51 P
== END ==
LOC: M RAD 13:01
PROVIDERS: ATTEND Anesthesiology
DX: M25.551 Pain in right hip (principal); M16.11 Unilateral primary osteoarthritis, right hip

== ENCOUNTER → 2019-10-03 | Outpatient (CLI) | payer MEDICARE, BC ==
--- NOTE | 2019-10-17 04:50 | ECWPNPC ---
PATIENT NAME: MARICHUY VALDEZ : 1945 GENDER: MALE VISIT DATE: 10/03/2019 DISCHARGE DATE: 10/03/19 1019 VISIT LOCKED DATE TIME: PHYSICIAN: RALPH MCLEOD RESOURCE: RALPH MCLEOD REASON FOR APPOINTMENT 1. 6 WEEKS HISTORY OF PRESENT ILLNESS HISTORY OF PRESENT ILLNESS: HERE FOR F/U OF PERSISTENT RIGHT HIP PAIN.PATIENT WAS OFFERED SURGERY BUT DUE TO HIS HIGH RISK MEDICAL HISTORY PATIENT AND FAMILY HAVE OPTED FOR NON SURGICAL TREATMENT.DESCRIBES LOW BACK PAIN AND RIGHT HIP PAIN ALL DAY,SHARP AND STABBING.STATES HE IS SLEEPING OK.RATING PAIN VAS 6/10 VAS.ACCOMPANIED IN EXAM ROOM WITH .DISCUSSED MEDICATION OPTIONS.HAS HAD SIDE EFFECTS OF MENTAL CONFUSION AND LETHARGY WITH SOME NARCOTIC PAIN MEDICATION TRIALS IN THE RECENT PAST. HERE FOR FOLLOW-UP AFTER STARTING BUTRANS PATCH 2 MONTHS AGO. BUTRANS PATCH 10 MCG WAS TOO STRONG AND CAUSED SIDE EFFECTS. CURRENTLY USING BUTRANS PATCH 5 MCG AND THIS IS NOT HELPFUL. DISCUSSED TRIAL OF BELBUCA. PAIN THE PATIENT DESCRIBES THE PAIN... FALL RISK SCREENING: SCREENING :NO FALLS REPORTED IN THE LAST YEAR CURRENT MEDICATIONS TAKING HUMALOG 100 UNIT/ML SOLUTION DIRECTED SUBCUTANEOUS 22 UNITS AT LUNCH, 30 UNITS AT DINNER TAKING LANTUS 100 UNIT/ML SOLUTION DIRECTED SUBCUTANEOUS BEFORE BEDTIME TAKING CITALOPRAM HYDROBROMIDE 20 MG TABLET 1 TABLET ORALLY ONCE A DAY TAKING LIPITOR 20 MG TABLET 1 TABLET ORALLY ONCE A DAY TAKING CARVEDILOL 6.25 MG TABLET 1 TABLET ORALLY DAILY TAKING CLOBETASOL PROP EMOLLIENT BASE 0.05 % CREAM 1 APPLICATION TO AFFECTED AREA EXTERNALLY DIRECTED TAKING TYLENOL EXTRA STRENGTH 500 MG TABLET 1 TABLET NEEDED ORALLY EVERY 8 HRS NEEDED TAKING MAY HAVE - - 1 DROP CBD OIL ONCE DAILY TAKING PAZEO 0.7 % SOLUTION 1 DROP INTO AFFECTED EYE OPHTHALMIC ONCE A DAY TAKING BUTRANS 5 MCG/HR PATCH WEEKLY 1 PATCH TO SKIN TRANSDERMAL Q7 DAYS =MDD TAKING SUSTAIN 1 DROP EYE 2-3 TIMES DAILY TAKING CENTRUM ADULTS - TABLET DIRECTED ORALLY NOT-TAKING AZELASTINE HCL 0.1 % SOLUTION 2 PUFFS IN EACH NOSTRIL NASALLY TWICE A DAY MEDICATION LIST REVIEWED AND RECONCILED WITH THE PATIENT PAST MEDICAL HISTORY HYPERTENSION HYPERLIPIDEMIA DEPRESSION DIABETES CHRONIC HIP PAIN ALLERGIES SEASONAL IC PENICILLIN (FOR ALLERGIES USE ONLY) LATEX (FOR ALLERGY USE ONLY): ADHESIVES TAPES, ETC SURGICAL HISTORY TORN MENISCUS 02/1996 TONSLLECTOMY 10/1996 CEREBRAL HEMORRHAGE 02/2012 STENTS PLACED 11/2011 FAMILY HISTORY FATHER: , DIAGNOSED WITH HYPERTENSION, DIABETES MOTHER: , UNSPECIFIED HEART DISEASE SIBLINGS: OTHER MALIGNANT NEOPLASM OF UNSPECIFIED SITE, DIABETES, UNSPECIFIED HEART DISEASE PT HAS 2 SIBLINGS THAT FROM HEART ATTACK, PT HAS ONE SIBLING ALIVE THAT HAS HISTORY OF DIABETES AND BREAST CANCER. SOCIAL HISTORY GENERAL: TOBACCO USE ARE YOU A:NONSMOKER HOUSING: OWNS HOME. EDUCATION LEVEL OF EDUCATION:HIGH SCHOOL LANGUAGE LANGUAGES SPOKEN:HUNGARIAN RECREATIONAL DRUG USE DRUG USE?NO CBD OIL LEARNING BARRIERS / SPECIAL NEEDS BARRIERS TO LEARNING?NO HEARING IMPAIRED?NO VISION IMPAIRED?YES COGNITIVELY IMPAIRED?NO PT HAS DIFFICULTY WRITING DUE TO RESULT OF CEREBRAL HEMORRHAGE :CORRECTIVE LENSES READINESS TO LEARN?YES PAIN CLINIC PFS, CLERGY, PUBLIC HEALTH REFERRALS WAS THE PROVIDER NOTIFIED OF ANY PERTINENT INFO?YES HAS THE PATIENT BEEN EDUCATED REGARDING HIS/HER PLAN OF CARE?YES HAS THE PATIENT BEEN EDUCATED REGARDING PAIN, THE RISK FOR PAIN, THE IMPORTANCE OF EFFECTIVE PAIN MANAGEMENT, AND THE PAIN ASSESSMENT PROCESS?YES LATEX QUESTIONNAIRE LATEX ALLERGY : HAVE YOU EVER DEVELOPED ANY TYPE OF REACTION AFTER HANDLING LATEX PRODUCTS SUCH RUBBER GLOVES, CONDOMS, DIAPHRAGMS, BALLOONS, SOCKS, OR UNDERWEAR?YES - PLEASE INDICATE :OTHER (DOCUMENT IN NOTES) PT STATES HE IS ALLERGIC TO ADHESIVES, TAPES, BANDAIDS, ETC LATEX ALLERGY : HAVE YOU EVER DEVELOPED ANY TYPE OF REACTION DURING OR AFTER DENTAL APPOINTMENT, VAGINAL/RECTAL EXAMINATION, SURGICAL PROCEDURE, OR ANY OTHER EXPOSURE?NO LATEX RISK : HAVE YOU EVER HAD ANY DIFFICULTY BREATHING OR HIVES AFTER EATING OR HANDLING ANY FRUITS, OR VEGETABLES; SUCH KIWI, BANANAS, STONE FRUITS, OR CHESTNUTSNO LATEX RISK : DO YOU HAVE A PREVIOUS PERSONAL HISTORY OF MORE THAN NINE SURGERIES, SPINA BIFIDA, OR REPEATED CATHERIZATIONS? NO LATEX RISK : ARE YOU FREQUENTLY EXPOSED TO LATEX PRODUCTS IN YOUR OCCUPATION?NO DATE ASKED : 10/03/2019 CAFFEINE CAFFEINE USE?YES 1 CUP CAFFEINE DAILY ADVANCE DIRECTIVE ADVANCE DIRECTIVE DISCUSSED WITH PATIENT:YES HCP ON FILE AT [facility] JERAMY DOM[facility]OGAG[facility]- [phone] CESAR ALBRIGHT -DAUGHTER [phone] MANDAEISM MANDAEISM NO ORIENTAL ORTHODOX BELIEFS THAT WOULD IMPACT HEALTH CARE. MARITAL STATUS: . 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 REVIEWED WITH PATIENT 07/20/19 0945 BVREVIEWED WITH PATIENT 08/22/19 0942 JSREVIEWED WITH PATIENT 10-03-19 DS. HOSPITALIZATION/MAJOR DIAGNOSTIC PROCEDURE SEE ABOVE SURGERIES REVIEW OF SYSTEMS REVIEWED BY: PROVIDER: RALPH GOETZ . CONSTITUTIONAL: ANY CHANGE IN YOUR MEDICAL CONDITION? NO . CHILLS NO . FEVER NO . INFECTION: DO YOU HAVE NEW INFECTIONS? NO . DO YOU HAVE HISTORY OF MRSA? NO . MUSCULOSKELETAL: ANY NEW PATTERNS OF PAIN OR NUMBNESS? NO . GASTROENTEROLOGY: ANY NEW CHANGE IN BOWEL CONTROL? NO . GENITOURINARY: ANY NEW CHANGE IN BLADDER CONTROL? NO . IS THERE A CHANCE YOU COULD BE ? NO . HEMATOLOGY/LYMPH: DO YOU TAKE ANY BLOOD THINNERS? (FOR EXAMPLE- COUMADIN, PLAVIX, AGGRENOX, PLATEL, PRADAXA, OR XARELTO) NO . WHEN WAS YOUR LAST DOSE? DATE: TIME: . NEUROLOGY: HAVE YOU FALLEN IN THE PAST 12 MONTHS? NO . ANY NEW EXTREMITY NUMBNESS OR WEAKNESS? NO . CARDIOLOGY: DO YOU HAVE A PACEMAKER OR DEFIBRILLATOR? NO . RESPIRATORY: HAVE YOU BEEN SICK IN THE PAST WEEK? NO . FEVER NO . FLU LIKE SYMPTOMS? NO . COUGH NO . INTEGUMENTARY: DO YOU HAVE ANY RASHES OR OPEN SORES? NO . ALLERGIC/IMMUNO: ARE YOU ALLERGIC TO IV DYE? NO . ANY NEW ALLERGIES? NO . PSYCHIATRIC: DO YOU HAVE THOUGHTS OF HURTING YOURSELF OR SOMEONE ELSE? NO . ARE YOU ABUSED, NEGLECTED, OR IN AN UNSAFE ENVIRONMENT? NO . ENDOCRINOLOGY: ARE YOU DIABETIC? YES, FSBS 92 . OTHER: DO YOU NEED ANY PRESCRIPTIONS? INCREASE MEDS . IF YES, PLEASE LIST: ____ . ANY NEW PROBLEMS WITH YOUR MEDICATIONS? NO . WHEN DID YOU LAST EAT? ____ . WHEN DID YOU LAST DRINK? ____ . WHAT DID YOU LAST DRINK? ____ . NAME OF PERSON DRIVING YOU HOME? ____ . DO YOU HAVE ANY OTHER QUESTIONS OR CONCERNS PT USING PSEUDOSENEPHRINE FOR CONGESTION, RECOMMENDED TO USE CLARITIN OR LORATIDINE FOR CONGESTION DUE TO BP MEDS . VITAL SIGNS WT 222.2 LBS, HT 70 IN, BMI 31.88 INDEX, BP 139/65 MM HG, HR 70 /MIN, RR 18 /MIN, TEMP 96.7 F, OXYGEN SAT % 96%, SAFE IN ENV? (Y/N) Y, NA INITIALS AW 0940, REVIEWED BY: ZABRINA. EXAMINATION GENERAL EXAMINATION: GENERAL AWAKE,ALERT ,PLEASANT . PSYCH AFFECT NORMAL . LUNGS: LUNG CARRASCO ARE CLEAR TO AUSCULTATION BILATERALLY. GOOD MOVEMENT OF AIR . HEART: S1, S2 IN A REGULAR RATE AND RHYTHM. NO SIGNIFICANT MURMURS, RUBS OR GALLOPS NOTED . ASSESSMENTS RIGHT HIP PAIN - M25.551 (PRIMARY) TREATMENT RIGHT HIP PAIN STOP BUTRANS PATCH WEEKLY, 5 MCG/HR, 1 PATCH TO SKIN, TRANSDERMAL, Q7 DAYS =MDD START BELBUCA FILM, 75 MCG, 1 FILM TO THE GUM, BUCALLY, ONCE A DAY, 30 DAYS, 30, REFILLS 2 NOTES: WE ARE IN THE PROCESS OF MEDICATION TRIALS WITH MARICHUY. HISTORY OF MULTIPLE DRUG INTOLERANCES. HE IS OPPOSED TO USING C2 MEDICATIONS AND I AM RECOMMENDING CONTINUED TRIALS OF BUPRENORPHINE, A C3 ANALGESIC NOTORIOUS FOR MINIMAL SIDE EFFECTS. WILL CALL WEEKLY SO THAT WE CAN ADJUST MEDICATION BASED ON TOLERANCE AND POTENTIAL SIDE EFFECTS., ISTOP REGISTRY REVIEWED AND DEMONSTRATES COMPLLIANCE. BRINGS IN MEDICATIONS WHICH IS APPROPRIATE FOR WHAT WAS DISPENSED. RECENT URINE TOXICOLOGY REVIEWED. NO UNAUTHORIZED MEDICATIONS. NO ILLICIT SUBSTANCES AND PRESCRIBED MEDICATIONS WERE PRESENT. BUTRANS 10MCG DESTROYED PER CLINIC POLICY. PREVENTIVE MEDICINE PAIN CLINIC TEACHING: THE PATIENT HAS BEEN EDUCATED REGARDING HIS/HER PLAN OF CARE : REVIEWED AND DISCUSSED TREATMENT PLAN WITH PT AND , PT AND ACKNOWLEDGED UNDERSTANDING OF PAIN MANAGEMENT TREATMENT PLAN THE PATIENT HAS BEEN EDUCATED REGARDING PAIN, THE RISK FOR PAIN, THE IMPORTANCE OF EFFECTIVE PAIN MANAGEMENT, AND THE PAIN ASSESSMENT PROCESS. : REVIEWED AND DISCUSSED BELBUCA PAMPHLET WITH PT AND , PT AND ACKNOWLEDGE UNDERSTANDING OF MEDICATION TREATMENT. PROCEDURE CODES FA211 ESTABILISHED PATIENT [facility] CHARGE DISPOSITION & COMMUNICATION FOLLOW UP 6 WEEKS (REASON: MED MGMNT) ELECTRONICALLY SIGNED BY SOFY MONSALVE ON 10/16/2019 AT 02:58 PM EST DISCLAIMER : THIS IS A VISIT SUMMARY EXTRACTED FROM THE [employer] CHART. IT IS NOT A COPY OF THE [employer] PROGRESS NOTE. CHRISD
== END ==
LOC: M PAIN 09:45
PROVIDERS: ATTEND Nurse Practitioner Family
DX: M25.551 Pain in right hip (principal); I10 Essential (primary) hypertension; E78.5 Hyperlipidemia, unspecified; Z86.59 Personal history of other mental and behavioral disorders; E11.9 Type 2 diabetes mellitus without complications; Z88.0 Allergy status to penicillin; Z91.040 Latex allergy status; Z79.4 Long term (current) use of insulin; Z79.899 Other long term (current) drug therapy

== ENCOUNTER → 2019-11-14 | Outpatient (CLI) | payer MEDICARE, BC ==
--- NOTE | 2019-12-04 04:39 | ECWPNPC ---
PATIENT NAME: MARICHUY VALDEZ : 1945 GENDER: MALE VISIT DATE: 11/14/2019 DISCHARGE DATE: 11/14/19 1025 VISIT LOCKED DATE TIME: PHYSICIAN: RALPH MCLEOD RESOURCE: RALPH MCLEOD REASON FOR APPOINTMENT 1. 6 WEEKS HISTORY OF PRESENT ILLNESS HISTORY OF PRESENT ILLNESS: HERE FOR FOLLOW-UP AND MEDICINE MANAGEMENT FOR CHRONIC RIGHT HIP PAIN. BELBUCA 75 G TWICE A DAY WAS STARTED AT HIS LAST VISIT. HE IS DOING VERY, VERY WELL. REPORTING IMPROVED ACTIVITY TOLERANCE. RATING PAIN LEVEL A 4-5/10 VAS. REPORTING SOME CONSTIPATION. DISCUSSED USING COLACE 50 MG TWICE A DAY. PAIN THE PATIENT DESCRIBES THE PAIN... FALL RISK SCREENING: SCREENING :NO FALLS REPORTED IN THE LAST YEAR CURRENT MEDICATIONS TAKING HUMALOG 100 UNIT/ML SOLUTION DIRECTED SUBCUTANEOUS 22 UNITS AT LUNCH, 30 UNITS AT DINNER TAKING LANTUS 100 UNIT/ML SOLUTION DIRECTED SUBCUTANEOUS BEFORE BEDTIME TAKING CITALOPRAM HYDROBROMIDE 20 MG TABLET 1 TABLET ORALLY ONCE A DAY TAKING LIPITOR 20 MG TABLET 1 TABLET ORALLY ONCE A DAY TAKING CARVEDILOL 6.25 MG TABLET 1 TABLET ORALLY DAILY TAKING CLOBETASOL PROP EMOLLIENT BASE 0.05 % CREAM 1 APPLICATION TO AFFECTED AREA EXTERNALLY DIRECTED TAKING PAZEO 0.7 % SOLUTION 1 DROP INTO AFFECTED EYE OPHTHALMIC ONCE A DAY NEEDED TAKING SUSTAIN 1 DROP EYE 2-3 TIMES DAILY TAKING BELBUCA 75 MCG FILM 1 FILM TO THE GUM BUCALLY BID MDD2 TAKING COLACE CLEAR 50 MG CAPSULE 1 CAPSULE NEEDED ORALLY EVERY OTHER DAY TAKING MAGNESIUM BISGLYCINATE 100 MG TABLET 72 MG DIRECTED ORALLY BID NOT-TAKING TYLENOL EXTRA STRENGTH 500 MG TABLET 1 TABLET NEEDED ORALLY EVERY 8 HRS NEEDED NOT-TAKING MAY HAVE - - 1 DROP CBD OIL ONCE DAILY NOT-TAKING CENTRUM ADULTS - TABLET DIRECTED ORALLY NOT-TAKING AZELASTINE HCL 0.1 % SOLUTION 2 PUFFS IN EACH NOSTRIL NASALLY TWICE A DAY MEDICATION LIST REVIEWED AND RECONCILED WITH THE PATIENT PAST MEDICAL HISTORY HYPERTENSION HYPERLIPIDEMIA DEPRESSION DIABETES CHRONIC HIP PAIN ALLERGIES SEASONAL IC PENICILLIN (FOR ALLERGIES USE ONLY) LATEX (FOR ALLERGY USE ONLY): ADHESIVES TAPES, ETC SURGICAL HISTORY TORN MENISCUS 02/1996 TONSLLECTOMY 10/1996 CEREBRAL HEMORRHAGE 02/2012 STENTS PLACED 11/2011 FAMILY HISTORY FATHER: , DIAGNOSED WITH DIABETES, HYPERTENSION MOTHER: , UNSPECIFIED HEART DISEASE SIBLINGS: DIABETES, UNSPECIFIED HEART DISEASE, OTHER MALIGNANT NEOPLASM OF UNSPECIFIED SITE PT HAS 2 SIBLINGS THAT FROM HEART ATTACK, PT HAS ONE SIBLING ALIVE THAT HAS HISTORY OF DIABETES AND BREAST CANCER. SOCIAL HISTORY GENERAL: TOBACCO USE ARE YOU A:NONSMOKER HOUSING: OWNS HOME. EDUCATION LEVEL OF EDUCATION:HIGH SCHOOL LANGUAGE LANGUAGES SPOKEN:UPPER SORBIAN RECREATIONAL DRUG USE DRUG USE?NO LEARNING BARRIERS / SPECIAL NEEDS BARRIERS TO LEARNING?NO HEARING IMPAIRED?NO VISION IMPAIRED?YES COGNITIVELY IMPAIRED?NO PT HAS DIFFICULTY WRITING DUE TO RESULT OF CEREBRAL HEMORRHAGE :CORRECTIVE LENSES READINESS TO LEARN?YES PAIN CLINIC PFS, CLERGY, PUBLIC HEALTH REFERRALS WAS THE PROVIDER NOTIFIED OF ANY PERTINENT INFO?YES HAS THE PATIENT BEEN EDUCATED REGARDING HIS/HER PLAN OF CARE?YES HAS THE PATIENT BEEN EDUCATED REGARDING PAIN, THE RISK FOR PAIN, THE IMPORTANCE OF EFFECTIVE PAIN MANAGEMENT, AND THE PAIN ASSESSMENT PROCESS?YES LATEX QUESTIONNAIRE LATEX ALLERGY : HAVE YOU EVER DEVELOPED ANY TYPE OF REACTION AFTER HANDLING LATEX PRODUCTS SUCH RUBBER GLOVES, CONDOMS, DIAPHRAGMS, BALLOONS, SOCKS, OR UNDERWEAR?YES - PLEASE INDICATE :OTHER (DOCUMENT IN NOTES) PT STATES HE IS ALLERGIC TO ADHESIVES, TAPES, BANDAIDS, ETC LATEX ALLERGY : HAVE YOU EVER DEVELOPED ANY TYPE OF REACTION DURING OR AFTER DENTAL APPOINTMENT, VAGINAL/RECTAL EXAMINATION, SURGICAL PROCEDURE, OR ANY OTHER EXPOSURE?NO LATEX RISK : HAVE YOU EVER HAD ANY DIFFICULTY BREATHING OR HIVES AFTER EATING OR HANDLING ANY FRUITS, OR VEGETABLES; SUCH KIWI, BANANAS, STONE FRUITS, OR CHESTNUTSNO LATEX RISK : DO YOU HAVE A PREVIOUS PERSONAL HISTORY OF MORE THAN NINE SURGERIES, SPINA BIFIDA, OR REPEATED CATHERIZATIONS? NO LATEX RISK : ARE YOU FREQUENTLY EXPOSED TO LATEX PRODUCTS IN YOUR OCCUPATION?NO DATE ASKED : 10/03/2019 CAFFEINE CAFFEINE USE?YES 1 CUP CAFFEINE DAILY ADVANCE DIRECTIVE ADVANCE DIRECTIVE DISCUSSED WITH PATIENT:YES HCP ON FILE AT [facility]- [phone] CESAR ALBRIGHT -DAUGHTER [phone] BUDDHISM BUDDHISM NO CHEONDOISM BELIEFS THAT WOULD IMPACT HEALTH CARE. MARITAL STATUS: . 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 REVIEWED WITH PATIENT 07/20/19 6313 BVREVIEWED WITH PATIENT 08/22/19 0928 JSREVIEWED WITH PATIENT 1-8-20 DSREVIEWED WITH PATIENT 11/14/2019 0952 FRANNY. HOSPITALIZATION/MAJOR DIAGNOSTIC PROCEDURE SEE ABOVE SURGERIES REVIEW OF SYSTEMS REVIEWED BY: PROVIDER: RALPH GOETZ . CONSTITUTIONAL: ANY CHANGE IN YOUR MEDICAL CONDITION? NO . CHILLS NO . FEVER NO . INFECTION: DO YOU HAVE NEW INFECTIONS? NO . DO YOU HAVE HISTORY OF MRSA? NO . MUSCULOSKELETAL: ANY NEW PATTERNS OF PAIN OR NUMBNESS? NO . GASTROENTEROLOGY: ANY NEW CHANGE IN BOWEL CONTROL? NO . GENITOURINARY: ANY NEW CHANGE IN BLADDER CONTROL? NO . IS THERE A CHANCE YOU COULD BE ? NO . HEMATOLOGY/LYMPH: DO YOU TAKE ANY BLOOD THINNERS? (FOR EXAMPLE- COUMADIN, PLAVIX, AGGRENOX, PLATEL, PRADAXA, OR XARELTO) NO . WHEN WAS YOUR LAST DOSE? DATE: TIME: . NEUROLOGY: HAVE YOU FALLEN IN THE PAST 12 MONTHS? NO . ANY NEW EXTREMITY NUMBNESS OR WEAKNESS? NO . CARDIOLOGY: DO YOU HAVE A PACEMAKER OR DEFIBRILLATOR? NO . RESPIRATORY: HAVE YOU BEEN SICK IN THE PAST WEEK? NO . FEVER NO . FLU LIKE SYMPTOMS? NO . COUGH NO . INTEGUMENTARY: DO YOU HAVE ANY RASHES OR OPEN SORES? NO . ALLERGIC/IMMUNO: ARE YOU ALLERGIC TO IV DYE? NO . ANY NEW ALLERGIES? NO . PSYCHIATRIC: DO YOU HAVE THOUGHTS OF HURTING YOURSELF OR SOMEONE ELSE? NO . ARE YOU ABUSED, NEGLECTED, OR IN AN UNSAFE ENVIRONMENT? NO . ENDOCRINOLOGY: ARE YOU DIABETIC? YES . OTHER: DO YOU NEED ANY PRESCRIPTIONS? NO . IF YES, PLEASE LIST: ____ . ANY NEW PROBLEMS WITH YOUR MEDICATIONS? NO . WHEN DID YOU LAST EAT? ____ . WHEN DID YOU LAST DRINK? ____ . WHAT DID YOU LAST DRINK? ____ . NAME OF PERSON DRIVING YOU HOME? ____ . DO YOU HAVE ANY OTHER QUESTIONS OR CONCERNS YES, CAN IMTIAZCA BE RECEIVED THROUGH [facility]? . VITAL SIGNS WT 217.2 LBS, HT 70 IN, BMI 31.16 INDEX, BP 122/56 MM HG, HR 68 /MIN, RR 18 /MIN, TEMP 96.0 F, OXYGEN SAT % 96%, SAFE IN ENV? (Y/N) YES, NA INITIALS AW 0947, REVIEWED BY: FRANNY. EXAMINATION GENERAL EXAMINATION: GENERALAWAKE,ALERT ,PLEASANT . PSYCHAFFECT NORMAL . LUNGS:LUNG CARRASCO ARE CLEAR TO AUSCULTATION BILATERALLY. GOOD MOVEMENT OF AIR . HEART:S1, S2 IN A REGULAR RATE AND RHYTHM. NO SIGNIFICANT MURMURS, RUBS OR GALLOPS NOTED . ASSESSMENTS RIGHT HIP PAIN - M25.551 (PRIMARY) TREATMENT RIGHT HIP PAIN REFILL BELBUCA FILM, 75 MCG, 1 FILM TO THE GUM, BUCALLY, BID MDD2 3 MOS SUPPLY CAT D CHRONIC PAIN, 90 DAY(S), 180, REFILLS 1 PROCEDURE CODES FA211 ESTABILISHED PATIENT [facility] CHARGE DISPOSITION & COMMUNICATION FOLLOW UP 3 MONTHS (REASON: MED MGMNT) ELECTRONICALLY SIGNED BY SOFY MONSALVE ON 12/03/2019 AT 09:34 AM EDT DISCLAIMER : THIS IS A VISIT SUMMARY EXTRACTED FROM THE [employer] CHART. IT IS NOT A COPY OF THE [employer] PROGRESS NOTE. MTDIrena
== END ==
LOC: M PAIN 09:45
PROVIDERS: ATTEND Nurse Practitioner Family
DX: M25.551 Pain in right hip (principal); G89.29 Other chronic pain; I10 Essential (primary) hypertension; E78.5 Hyperlipidemia, unspecified; Z86.59 Personal history of other mental and behavioral disorders; E11.9 Type 2 diabetes mellitus without complications; Z88.0 Allergy status to penicillin; Z91.040 Latex allergy status; Z79.4 Long term (current) use of insulin; Z79.891 Long term (current) use of opiate analgesic; Z79.899 Other long term (current) drug therapy

== ENCOUNTER → 2020-02-12 | Outpatient (CLI) | payer MEDICARE, BC ==
--- NOTE | 2020-02-20 07:04 | ECWPNPC ---
PATIENT NAME: MARICHUY VALDEZ : 1945 GENDER: MALE VISIT DATE: 02/12/2020 DISCHARGE DATE: 02/12/20920 VISIT LOCKED DATE TIME: PHYSICIAN: RALPH MCLEOD RESOURCE: RALPH MCLEOD REASON FOR APPOINTMENT 1. HIP/MED MGMNT; [phone] PAT DONE HISTORY OF PRESENT ILLNESS HISTORY OF PRESENT ILLNESS: PATIENT IS AGREEABLE TO TELEMED VISIT VIA ZOOM. HAVING AN INCREASE IN RIGHT HIP PAIN. REPORTS THAT BELBUCA 75 MCGG TWICE A DAY IS NOT HELPING LIKE IT USED TO. RATING PAIN LEVEL A 6-8/10 VAS. DISCUSSED MEDICATION AND TREATMENT OPTIONS. PAIN THE PATIENT DESCRIBES THE PAIN... FALL RISK SCREENING: SCREENING :NO FALLS REPORTED IN THE LAST YEAR CURRENT MEDICATIONS TAKING HUMALOG 100 UNIT/ML SOLUTION DIRECTED SUBCUTANEOUS 22 UNITS AT LUNCH, 30 UNITS AT DINNER TAKING LANTUS 100 UNIT/ML SOLUTION DIRECTED SUBCUTANEOUS BEFORE BEDTIME TAKING CITALOPRAM HYDROBROMIDE 20 MG TABLET 1 TABLET ORALLY ONCE A DAY TAKING LIPITOR 20 MG TABLET 1 TABLET ORALLY ONCE A DAY TAKING CARVEDILOL 6.25 MG TABLET 1 TABLET ORALLY DAILY TAKING CLOBETASOL PROP EMOLLIENT BASE 0.05 % CREAM 1 APPLICATION TO AFFECTED AREA EXTERNALLY DIRECTED TAKING PAZEO 0.7 % SOLUTION 1 DROP INTO AFFECTED EYE OPHTHALMIC ONCE A DAY NEEDED TAKING SUSTAIN 1 DROP EYE 2-3 TIMES DAILY TAKING COLACE CLEAR 50 MG CAPSULE 1 CAPSULE NEEDED ORALLY EVERY OTHER DAY TAKING MAGNESIUM BISGLYCINATE 100 MG TABLET 72 MG DIRECTED ORALLY BID TAKING BELBUCA 75 MCG FILM 1 FILM TO THE GUM BUCALLY BID MDD2 3 MOS SUPPLY CAT D CHRONIC PAIN TAKING TYLENOL EXTRA STRENGTH 500 MG TABLET 1 TABLET NEEDED ORALLY EVERY 8 HRS NEEDED NOT-TAKING MAY HAVE - - 1 DROP CBD OIL ONCE DAILY NOT-TAKING CENTRUM ADULTS - TABLET DIRECTED ORALLY NOT-TAKING AZELASTINE HCL 0.1 % SOLUTION 2 PUFFS IN EACH NOSTRIL NASALLY TWICE A DAY MEDICATION LIST REVIEWED AND RECONCILED WITH THE PATIENT PAST MEDICAL HISTORY HYPERTENSION HYPERLIPIDEMIA DEPRESSION DIABETES CHRONIC HIP PAIN ALLERGIES SEASONAL IC PENICILLIN (FOR ALLERGIES USE ONLY) LATEX (FOR ALLERGY USE ONLY): ADHESIVES TAPES, ETC SURGICAL HISTORY TORN MENISCUS 02/1996 TONSLLECTOMY 10/1996 CEREBRAL HEMORRHAGE 02/2012 STENTS PLACED 11/2011 FAMILY HISTORY FATHER: , DIAGNOSED WITH HYPERTENSION, DIABETES MOTHER: , UNSPECIFIED HEART DISEASE SIBLINGS: DIABETES, UNSPECIFIED HEART DISEASE, OTHER MALIGNANT NEOPLASM OF UNSPECIFIED SITE PT HAS 2 SIBLINGS THAT FROM HEART ATTACK, PT HAS ONE SIBLING ALIVE THAT HAS HISTORY OF DIABETES AND BREAST CANCER. SOCIAL HISTORY GENERAL: TOBACCO USE ARE YOU A:NONSMOKER 02/12/2020 LATEX QUESTIONNAIRE LATEX ALLERGY : HAVE YOU EVER DEVELOPED ANY TYPE OF REACTION AFTER HANDLING LATEX PRODUCTS SUCH RUBBER GLOVES, CONDOMS, DIAPHRAGMS, BALLOONS, SOCKS, OR UNDERWEAR?YES - PLEASE INDICATE :OTHER (DOCUMENT IN NOTES) PT STATES HE IS ALLERGIC TO ADHESIVES, TAPES, BANDAIDS, ETC LATEX ALLERGY : HAVE YOU EVER DEVELOPED ANY TYPE OF REACTION DURING OR AFTER DENTAL APPOINTMENT, VAGINAL/RECTAL EXAMINATION, SURGICAL PROCEDURE, OR ANY OTHER EXPOSURE?NO LATEX RISK : HAVE YOU EVER HAD ANY DIFFICULTY BREATHING OR HIVES AFTER EATING OR HANDLING ANY FRUITS, OR VEGETABLES; SUCH KIWI, BANANAS, STONE FRUITS, OR CHESTNUTSNO LATEX RISK : DO YOU HAVE A PREVIOUS PERSONAL HISTORY OF MORE THAN NINE SURGERIES, SPINA BIFIDA, OR REPEATED CATHERIZATIONS? NO LATEX RISK : ARE YOU FREQUENTLY EXPOSED TO LATEX PRODUCTS IN YOUR OCCUPATION?NO DATE ASKED : 02/12/2020 LUNG CANCER SCREENING SMOKING STATUS:NON SMOKER ALCOHOL SCREENING DID YOU HAVE A DRINK CONTAINING ALCOHOL IN THE PAST YEAR?NO POINTS0 INTERPRETATIONNEGATIVE RECREATIONAL DRUG USE DRUG USE?NO CAFFEINE CAFFEINE USE?YES 1 CUP CAFFEINE DAILY LATTER DAY LATTER DAY NO QUAKER BELIEFS THAT WOULD IMPACT HEALTH CARE. 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 MARITAL STATUS: . NEW PATIENT PAIN DIARY TODAY'S VISIT 02/12/2020 PATIENT DESCRIBES PAIN :ACHING, STABBING, SORE FROM 0-10, WHAT LEVEL IS YOUR PAIN TODAY?7 PAIN WORSE AT NIGHT WHILE TRYING TO SLEEP PAIN CLINIC PFS, CLERGY, PUBLIC HEALTH REFERRALS WAS THE PROVIDER NOTIFIED OF ANY PERTINENT INFO?YES HAS THE PATIENT BEEN EDUCATED REGARDING HIS/HER PLAN OF CARE?YES HAS THE PATIENT BEEN EDUCATED REGARDING PAIN, THE RISK FOR PAIN, THE IMPORTANCE OF EFFECTIVE PAIN MANAGEMENT, AND THE PAIN ASSESSMENT PROCESS?YES HOUSING: OWNS HOME. ADVANCE DIRECTIVE ADVANCE DIRECTIVE DISCUSSED WITH PATIENT:YES HCP ON FILE AT [facility] JERAMY VALDEZ- [phone] CESAR ALBRIGHT -DAUGHTER [phone] HOSPITALIZATION/MAJOR DIAGNOSTIC PROCEDURE SEE ABOVE SURGERIES REVIEW OF SYSTEMS REVIEWED BY: PROVIDER: RALPH GOETZ . CONSTITUTIONAL: ANY CHANGE IN YOUR MEDICAL CONDITION? NO . CHILLS NO . FEVER NO . INFECTION: DO YOU HAVE NEW INFECTIONS? NO . DO YOU HAVE HISTORY OF MRSA? NO . MUSCULOSKELETAL: ANY NEW PATTERNS OF PAIN OR NUMBNESS? NO . GASTROENTEROLOGY: ANY NEW CHANGE IN BOWEL CONTROL? NO . GENITOURINARY: ANY NEW CHANGE IN BLADDER CONTROL? NO . IS THERE A CHANCE YOU COULD BE ? NO . HEMATOLOGY/LYMPH: DO YOU TAKE ANY BLOOD THINNERS? (FOR EXAMPLE- COUMADIN, PLAVIX, AGGRENOX, PLATEL, PRADAXA, OR XARELTO) NO . WHEN WAS YOUR LAST DOSE? DATE: TIME: . NEUROLOGY: HAVE YOU FALLEN IN THE PAST 12 MONTHS? NO . ANY NEW EXTREMITY NUMBNESS OR WEAKNESS? NO . CARDIOLOGY: DO YOU HAVE A PACEMAKER OR DEFIBRILLATOR? NO . RESPIRATORY: HAVE YOU BEEN SICK IN THE PAST WEEK? NO . FEVER NO . FLU LIKE SYMPTOMS? NO . COUGH NO . INTEGUMENTARY: DO YOU HAVE ANY RASHES OR OPEN SORES? NO . ALLERGIC/IMMUNO: ARE YOU ALLERGIC TO IV DYE? NO . ANY NEW ALLERGIES? NO . PSYCHIATRIC: DO YOU HAVE THOUGHTS OF HURTING YOURSELF OR SOMEONE ELSE? NO . ARE YOU ABUSED, NEGLECTED, OR IN AN UNSAFE ENVIRONMENT? NO . ENDOCRINOLOGY: ARE YOU DIABETIC? NO . OTHER: DO YOU NEED ANY PRESCRIPTIONS? NO . IF YES, PLEASE LIST: ____ . ANY NEW PROBLEMS WITH YOUR MEDICATIONS? NO . WHEN DID YOU LAST EAT? ____ . WHEN DID YOU LAST DRINK? ____ . WHAT DID YOU LAST DRINK? ____ . NAME OF PERSON DRIVING YOU HOME? ____ . DO YOU HAVE ANY OTHER QUESTIONS OR CONCERNS NO . EXAMINATION GENERAL EXAMINATION: GENERALNO ACUTE DISTRESS, WELL NOURISHED AND HYDRATED. PSYCHAPPROPRIATE MOOD AND AFFECT . FACE:UNREMARKABLE. ASSESSMENTS RIGHT HIP PAIN - M25.551 (PRIMARY) TREATMENT RIGHT HIP PAIN INCREASE BELBUCA FILM, 150 MCG, 1 FILM TO THE GUM, BUCALLY, BID MDD2 3 MOS SUPPLY CAT D CHRONIC PAIN, 90 DAY(S), 180, REFILLS 1 NOTES: ISTOP REGISTRY REVIEWED AND DEMONSTRATES COMPLLIANCE. RECENT URINE TOXICOLOGY REVIEWED. NO UNAUTHORIZED MEDICATIONS. NO ILLICIT SUBSTANCES AND PRESCRIBED MEDICATIONS WERE PRESENT. TODAY I INCREASED BELBUCA TO 150 MCGG TWICE A DAY. ADVISED TO INCREASE COLACE 100 MG 2 CAPSULES TWICE A DAY. ADVISED TO CALL CLINIC WITH ANY PROBLEMS. BRIEFLY DISCUSS COOL RF FOR RIGHT HIP PAIN. FOLLOW-UP IN PAIN CLINIC IN 3 MONTHS. TOTAL TIME SPENT DURING TELEMED VISIT WAS APPROXIMATELY 15 MINUTES. OTHERS CLINICAL NOTES: VITALS UNABLE TO BE OBTAINED DUE TO TELEMEDICINE VISIT. DISPOSITION & COMMUNICATION FOLLOW UP 3 MONTHS IN CLINIC (REASON: RIGHT HIP PAIN/MEDICINE MANAGEMENT) ELECTRONICALLY SIGNED BY SOFY MONSALVE ON 02/19/2020 AT 03:45 PM EDT DISCLAIMER : THIS IS A VISIT SUMMARY EXTRACTED FROM THE [employer] CHART. IT IS NOT A COPY OF THE [employer] PROGRESS NOTE. EZEQUIEL
== END ==
LOC: M PAIN 09:30 → M TMPAIN 09:30
PROVIDERS: ATTEND Nurse Practitioner Family
DX: M25.551 Pain in right hip (principal); E11.9 Type 2 diabetes mellitus without complications; I10 Essential (primary) hypertension; Z79.4 Long term (current) use of insulin; Z79.899 Other long term (current) drug therapy; Z88.0 Allergy status to penicillin; Z91.040 Latex allergy status

== ENCOUNTER 2020-05-19 10:01 | Day surgery (SDC) | payer MEDICARE, BC ==
[~2020-05-19] VITALS: Ht 182.9 cm; Wt 89.7 kg
[~2020-05-19 10:01] MED LIST changes: +ONDA-83 PO; +[UNRECOGNIZED DRUG - CODE] PO
[2020-05-19] MEDS ORDERED: propofoL 200 MG/20 ML VIAL As Ordered ONE (11:24)
[2020-05-19] MEDS ORDERED: LIDOCAINE 2% 100MG/5ML SDV (FOR ANES.) As Ordered ONE (11:24)
[2020-05-19] MEDS ORDERED: fentaNYL 100 MCG/2 ML INJECTION (J3010) As Ordered ONE (11:25)
[2020-05-19 12:10] VITALS: BP 139/70
--- NOTE | 2020-06-04 11:30 | ROOR ---
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 Procedure: Pre-Anesthesia Assessment: - The heart rate, respiratory rate, oxygen saturations, blood pressure, adequacy of pulmonary ventilation, and response to care were monitored throughout the procedure. The Endoscope was introduced through the mouth, and advanced to the second part of duodenum. The upper GI endoscopy was accomplished without difficulty. The patient tolerated the procedure well. Findings: The Z-line was irregular and was found 40 cm from the incisors. No other significant abnormalities were identified in a careful examination of the stomach. Biopsies were taken with a cold forceps in the gastric antrum for Helicobacter pylori testing. The exam of the duodenum was otherwise normal. Impression: - Z-line irregular, 40 cm from the incisors. - Biopsies were taken with a cold forceps for Helicobacter pylori testing. - The examination was otherwise normal. Recommendation: - Patient has a contact number available for emergencies. The signs and symptoms of potential delayed complications were discussed with the patient. Return to normal activities tomorrow. Written discharge instructions were provided to the patient. - High fiber diet. - Discharge patient to home. - Continue present medications. - Await pathology results. - Telephone GI clinic for pathology results in 1 week. - Return to referring physician. - The findings and recommendations were discussed with the patient. Cornell Sykes MD 05/19/2020 11:38:18 AM Number of Addenda: 0 Note Initiated On: 05/19/2020 10:44 AM Estimated Blood Loss: Estimated blood loss: none.
== END 2020-05-19 12:12 | disposition home or self-care (01) ==
LOC: M OPP 10:01
PROVIDERS: ATTEND Internal Medicine Gastroenterology
DX: K22.8 Other specified diseases of esophagus (principal); R10.13 Epigastric pain; R11.2 Nausea with vomiting, unspecified; E11.9 Type 2 diabetes mellitus without complications; I51.9 Heart disease, unspecified; Z79.4 Long term (current) use of insulin; Z79.899 Other long term (current) drug therapy; Z88.0 Allergy status to penicillin; Z91.040 Latex allergy status; Z87.891 Personal history of nicotine dependence; Z86.79 Personal history of other diseases of the circulatory system; Z95.5 Presence of coronary angioplasty implant and graft
CPT/HCPCS: 43239; 88305; J3010

== ENCOUNTER → 2020-10-30 | Outpatient (REF) | payer MEDICARE | LOC: M LAB REF 12:44 | PROVIDERS: ATTEND Internal Medicine | DX: Z01.89 Encounter for other specified special examinations (principal) ==

== ENCOUNTER → 2021-02-04 | Outpatient (CLI) | payer MEDICARE ==
--- NOTE | 2021-02-04 16:25 | REP ---
INDICATION: INCREASING URINARY INCONT. COMPARISON: None. TECHNIQUE: Five views lumbosacral spine. FINDINGS: There is no compression fracture or malalignment. There is normal lumbar lordosis. There is mild diffuse spurring. There is mild disc space narrowing and subchondral sclerosis at all levels. There is sclerosis and spurring at the posterior facet joints diffusely as well. The posterior elements are intact. There is mild curvature toward the left. IMPRESSION: Diffuse degenerative changes. No fracture or dislocation. <Electronically signed by Jimi Sigala > 02/04/21 [id number]
== END ==
LOC: M WUC 15:14
PROVIDERS: ATTEND Internal Medicine
DX: R32 Unspecified urinary incontinence (principal); M25.78 Osteophyte, vertebrae

== ENCOUNTER → 2021-02-21 | Outpatient (REF) | payer MEDICARE | LOC: M LAB REF 18:16 | PROVIDERS: ATTEND Physician Assistant | DX: R30.0 Dysuria (principal) ==

== ENCOUNTER → 2021-03-19 | Outpatient (REF) | payer MEDICARE, BC ==
[2021-03-19 17:39] LABS: APPEARANCE, URINE CLOUDY (CLEAR); BACTERIA, URINE AUTO 1+ (NEGATIVE); BILIRUBIN, URINE AUTO NEGATIVE (NEGATIVE); BLOOD, URINE BLOOD 1+ (NEGATIVE); COLOR, URINE YELLOW (YELLOW); GLUCOSE, URINE (UA) AUTO NEGATIVE (NEGATIVE); KETONE, URINE AUTO NEGATIVE (NEGATIVE); LEUKOCYTE ESTERASE, URINE AUTO 3+ (NEGATIVE); NITRITE, URINE AUTO NEGATIVE (NEGATIVE); PROTEIN, URINE AUTO NEGATIVE (NEGATIVE); RBC, URINE AUTO 5 /HPF (0-3); SPECIFIC GRAVITY URINE AUTO 1.009 (1.002-1.035); SQUAMOUS EPITHELIAL CELL UR AU 0 /HPF (0-6); UROBILINOGEN, URINE AUTO 0.2 mg/dL (0.0-2.0); WBC, URINE AUTO TNTC /HPF (0-3)
== END ==
LOC: M SMT 17:10
PROVIDERS: ATTEND Nurse Practitioner Family
DX: R32 Unspecified urinary incontinence (principal)

== ENCOUNTER → 2021-05-22 | Outpatient (REF) | payer MEDICARE, BC ==
[2021-05-22 14:15] LABS: APPEARANCE, URINE CLOUDY (CLEAR); BACTERIA, URINE AUTO 1+ (NEGATIVE); BILIRUBIN, URINE AUTO NEGATIVE (NEGATIVE); BLOOD, URINE BLOOD 1+ (NEGATIVE); COLOR, URINE YELLOW (YELLOW); GLUCOSE, URINE (UA) AUTO NEGATIVE (NEGATIVE); KETONE, URINE AUTO NEGATIVE (NEGATIVE); LEUKOCYTE ESTERASE, URINE AUTO 3+ (NEGATIVE); NITRITE, URINE AUTO NEGATIVE (NEGATIVE); PROTEIN, URINE AUTO NEGATIVE (NEGATIVE); RBC, URINE AUTO 10 /HPF (0-3); SPECIFIC GRAVITY URINE AUTO 1.009 (1.002-1.035); SQUAMOUS EPITHELIAL CELL UR AU 0 /HPF (0-6); UROBILINOGEN, URINE AUTO 0.2 mg/dL (0.0-2.0); WBC, URINE AUTO TNTC /HPF (0-3)
== END ==
LOC: M SMT 13:16
PROVIDERS: ATTEND Urology
DX: R30.0 Dysuria (principal)

== ENCOUNTER → 2021-05-25 | Outpatient (REF) | payer MEDICARE, BC ==
[~2021-05-25] MED LIST changes: +LOSA50TA28 PO; -LOSA50TA88 PO
[2021-05-25 14:38] LABS: APPEARANCE, URINE HAZY (CLEAR); BACTERIA, URINE AUTO 1+ (NEGATIVE); BILIRUBIN, URINE AUTO NEGATIVE (NEGATIVE); BLOOD, URINE BLOOD 1+ (NEGATIVE); COLOR, URINE AMBER (YELLOW); GLUCOSE, URINE (UA) AUTO NEGATIVE (NEGATIVE); KETONE, URINE AUTO NEGATIVE (NEGATIVE); LEUKOCYTE ESTERASE, URINE AUTO 2+ (NEGATIVE); MUCUS, URINE SMALL (NEGATIVE); NITRITE, URINE AUTO POSITIVE (NEGATIVE); PROTEIN, URINE AUTO NEGATIVE (NEGATIVE); RBC, URINE AUTO 6 /HPF (0-3); SQUAMOUS EPITHELIAL CELL UR AU 0 /HPF (0-6); WBC, URINE AUTO TNTC /HPF (0-3)
== END ==
LOC: M SMT 13:13
PROVIDERS: ATTEND Urology
DX: R30.0 Dysuria (principal)

== ENCOUNTER → 2021-06-04 | Outpatient (CLI) | payer MEDICARE ==
[~2021-06-04] MED LIST changes: -LOSA50TA28 PO; +LOSA50TA88 PO
== END ==
LOC: M PLALAB 14:01
PROVIDERS: ATTEND Urology
DX: N40.1 Benign prostatic hyperplasia with lower urinary tract symptoms (principal)
CPT/HCPCS: 36415; G0103

== ENCOUNTER → 2021-07-09 | Outpatient (CLI) | payer MEDICARE ==
--- NOTE | 2021-07-09 11:24 | REP ---
INDICATION: EARLY CANCER LUNG SCREENING EXAM. COMPARISON: Multiple the latest 03/25/2020 standard contrast-enhanced CT examinations. TECHNIQUE: Axial noncontrast images from the thoracic inlet to the upper abdomen using low-dose lung screening technique (LDCT). As per the protocol only lung window images were sent to the read station for interpretation. FINDINGS: The small nodule in the posterior segment of the right upper lobe is unchanged. There is a new 5 mm size nodule in the posterior basal segment of the right lower lobe. There is an incidental calcified granuloma in the left lower lobe. IMPRESSION: 1. There is a new nodule in the right lower lobe as described above. According to the revised Fleischner society criteria this represents a lung rads category 3 lesion for which a six-month follow-up chest CT is recommended. 2. Other findings as described above. <Electronically signed by Fuad Carmen > 07/09/21 [id number]
== END ==
LOC: M RAD 10:33
PROVIDERS: ATTEND Internal Medicine
DX: Z12.2 Encounter for screening for malignant neoplasm of respiratory organs (principal); F17.210 Nicotine dependence, cigarettes, uncomplicated; R91.8 Other nonspecific abnormal finding of lung field

== ENCOUNTER → 2022-01-22 | Outpatient (CLI) | payer MEDICARE ==
[~2022-01-22] MED LIST changes: +LOSA50TA28 PO; -LOSA50TA88 PO
== END ==
LOC: M RAD 10:16
PROVIDERS: ATTEND Internal Medicine
DX: Z12.2 Encounter for screening for malignant neoplasm of respiratory organs (principal); Z87.891 Personal history of nicotine dependence; R91.8 Other nonspecific abnormal finding of lung field

== ENCOUNTER → 2022-05-26 | Outpatient (CLI) | payer MEDICARE ==
[~2022-05-26] MED LIST changes: +ISOVUE-370 76% 100ML VIAL As Ordered ONE
== END ==
LOC: M RAD 09:21
PROVIDERS: ATTEND Internal Medicine
DX: R91.1 Solitary pulmonary nodule (principal)
CPT/HCPCS: 71260; Q9967

== ENCOUNTER → 2022-09-14 | Outpatient (CLI) | payer MEDICARE ==
[~2022-09-14] MED LIST changes: -ISOVUE-370 76% 100ML VIAL As Ordered ONE
== END ==
LOC: M RAD 14:32
PROVIDERS: ATTEND Internal Medicine
DX: H53.8 Other visual disturbances (principal)

== ENCOUNTER → 2022-12-21 | Outpatient (REF) | payer MEDICARE, BC ==
[2022-12-21 17:19] LABS: AMORPHOUS SEDIMENT SMALL (NEGATIVE); APPEARANCE, URINE HAZY (CLEAR); BACTERIA, URINE AUTO NEGATIVE (NEGATIVE); BILIRUBIN, URINE AUTO NEGATIVE (NEGATIVE); BLOOD, URINE BLOOD 3+ (NEGATIVE); COLOR, URINE YELLOW (YELLOW); GLUCOSE, URINE (UA) AUTO NEGATIVE (NEGATIVE); KETONE, URINE AUTO NEGATIVE (NEGATIVE); LEUKOCYTE ESTERASE, URINE AUTO 1+ (NEGATIVE); NITRITE, URINE AUTO NEGATIVE (NEGATIVE); PROTEIN, URINE AUTO NEGATIVE (NEGATIVE); RBC, URINE AUTO TNTC /HPF (0-3); SPECIFIC GRAVITY URINE AUTO 1.011 (1.002-1.035); SQUAMOUS EPITHELIAL CELL UR AU 1 /HPF (0-6); UROBILINOGEN, URINE AUTO 0.2 mg/dL (0.0-2.0); WBC, URINE AUTO 62 /HPF (0-3)
== END ==
LOC: M LAB REF 16:35
PROVIDERS: ATTEND Internal Medicine
DX: R31.9 Hematuria, unspecified (principal)

== ENCOUNTER → 2022-12-22 | Outpatient (REF) | payer MEDICARE, BC ==
[2022-12-22 17:36] LABS: APPEARANCE, URINE HAZY (CLEAR); BACTERIA, URINE AUTO 1+ (NEGATIVE); BILIRUBIN, URINE AUTO NEGATIVE (NEGATIVE); BLOOD, URINE BLOOD 1+ (NEGATIVE); COLOR, URINE YELLOW (YELLOW); GLUCOSE, URINE (UA) AUTO NEGATIVE (NEGATIVE); KETONE, URINE AUTO NEGATIVE (NEGATIVE); LEUKOCYTE ESTERASE, URINE AUTO 3+ (NEGATIVE); NITRITE, URINE AUTO NEGATIVE (NEGATIVE); PROTEIN, URINE AUTO NEGATIVE (NEGATIVE); RBC, URINE AUTO 2 /HPF (0-3); SPECIFIC GRAVITY URINE AUTO 1.005 (1.002-1.035); SQUAMOUS EPITHELIAL CELL UR AU 0 /HPF (0-6); UROBILINOGEN, URINE AUTO 0.2 mg/dL (0.0-2.0); WBC, URINE AUTO 163 /HPF (0-3)
== END ==
LOC: M LAB REF 16:28
PROVIDERS: ATTEND Internal Medicine
DX: R31.9 Hematuria, unspecified (principal)

== ENCOUNTER → 2023-06-17 | Outpatient (CLI) | payer MEDICARE | LOC: M RAD 08:52 | PROVIDERS: ATTEND Internal Medicine Gastroenterology | DX: R10.13 Epigastric pain (principal); K76.0 Fatty (change of) liver, not elsewhere classified; N28.1 Cyst of kidney, acquired ==

== ENCOUNTER → 2023-06-29 | Outpatient (CLI) | payer MEDICARE | LOC: M RAD 13:18 | PROVIDERS: ATTEND Internal Medicine Gastroenterology | DX: R10.13 Epigastric pain (principal) | CPT/HCPCS: 78227; A9537 ==

== ENCOUNTER → 2023-06-30 | Outpatient (CLI) | payer MEDICARE | LOC: M RAD 12:03 | PROVIDERS: ATTEND Physician Assistant | DX: R33.9 Retention of urine, unspecified (principal); N28.1 Cyst of kidney, acquired; N20.0 Calculus of kidney; R93.41 Abnormal radiologic findings on diagnostic imaging of renal pelvis, ureter, or bladder ==

== ENCOUNTER 2023-09-05 11:54 | Day surgery (SDC) | payer MEDICARE ==
[~2023-09-05] VITALS: Ht 182.9 cm; Wt 80.7 kg
[~2023-09-05 11:54] MED LIST changes: +ACET-907 PO; +B-12100010 PO; +BELB75MI BUC; +CRAN400C PO; +D31000CA4 PO; +LUTEIN PO; +MAGN1POW28 PO; +NS 1,000 ML IV ONE; +PROBCAP14 PO; +[UNRECOGNIZED DRUG - CODE] PO
[2023-09-05] MEDS ORDERED: propofoL 200 MG/20 ML VIAL As Ordered ONE (13:15)
[2023-09-05] MEDS ORDERED: LIDOCAINE 2% 100MG/5ML SDV (FOR ANES.) As Ordered ONE (13:16)
[2023-09-05 15:50] VITALS: BP 177/84; TEMP 97; O2SAT 99
== END 2023-09-05 15:55 | disposition home or self-care (01) ==
LOC: M OPP 11:54
PROVIDERS: ATTEND Internal Medicine Gastroenterology
DX: R19.5 Other fecal abnormalities (principal); K29.50 Unspecified chronic gastritis without bleeding; K64.0 First degree hemorrhoids; K57.30 Diverticulosis of large intestine without perforation or abscess without bleeding; K22.70 Barrett's esophagus without dysplasia; K31.89 Other diseases of stomach and duodenum; E78.00 Pure hypercholesterolemia, unspecified; E11.9 Type 2 diabetes mellitus without complications; K21.9 Gastro-esophageal reflux disease without esophagitis; M19.90 Unspecified osteoarthritis, unspecified site; F32.A Depression, unspecified; Z87.891 Personal history of nicotine dependence; Z95.5 Presence of coronary angioplasty implant and graft; Z88.0 Allergy status to penicillin; Z91.040 Latex allergy status; Z79.4 Long term (current) use of insulin; Z79.899 Other long term (current) drug therapy

== ENCOUNTER 2023-12-09 15:53 | Emergency (ER) | payer MEDICARE ==
[~2023-12-09] VITALS: Ht 182.9 cm; Wt 81.8 kg
[~2023-12-09 15:53] MED LIST changes: -NS 1,000 ML IV ONE
[2023-12-09 15:57] VITALS: TEMP 98.4
[2023-12-09] MEDS: NORCO, ANEXSIA 5/325MG TABLET (HYDROcodone/ACETAMINOPHEN) PO ONE (17:31)
[2023-12-09] MEDS: KETOROLAC 60MG 2ML VIAL IM ONE (18:01)
[2023-12-09 19:04] VITALS: O2SAT 100
[2023-12-09] MEDS ORDERED: HYDR-3713 PO (19:14)
[2023-12-09 19:27] VITALS: BP 188/92
== END 2023-12-09 19:29 | disposition home or self-care (01) ==
LOC: M ED 15:53
DX: S42.212A Unspecified displaced fracture of surgical neck of left humerus, initial encounter for closed fracture (principal); S10.91XA Abrasion of unspecified part of neck, initial encounter; W18.30XA Fall on same level, unspecified, initial encounter; Y92.002 Bathroom of unspecified non-institutional (private) residence as the place of occurrence of the external cause; Y93.9 Activity, unspecified; Y99.9 Unspecified external cause status; G93.89 Other specified disorders of brain; M25.78 Osteophyte, vertebrae; E11.9 Type 2 diabetes mellitus without complications; Z79.4 Long term (current) use of insulin; Z79.899 Other long term (current) drug therapy; Z88.0 Allergy status to penicillin; Z91.040 Latex allergy status
CPT/HCPCS: 70450; 72125; 73030; 96372; 99284; J1885

== ENCOUNTER → 2023-12-16 | Outpatient (CLI) | payer MEDICARE ==
[~2023-12-16] MED LIST changes: +HYDR-3713 PO
== END ==
LOC: M SOG 07:56
PROVIDERS: ATTEND Physician Assistant
DX: Z53.9 Procedure and treatment not carried out, unspecified reason (principal)

== ENCOUNTER → 2023-12-29 | Outpatient (CLI) | payer MEDICARE | LOC: M SOG 09:44 | PROVIDERS: ATTEND Physician Assistant | DX: S42.202D Unspecified fracture of upper end of left humerus, subsequent encounter for fracture with routine healing (principal) ==

== ENCOUNTER → 2024-01-11 | Outpatient (CLI) | payer MEDICARE | LOC: M SOG 15:42 | PROVIDERS: ATTEND Physician Assistant | DX: M25.532 Pain in left wrist (principal) ==

== ENCOUNTER → 2024-01-26 | Outpatient (CLI) | payer MEDICARE | LOC: M SOG 08:37 | PROVIDERS: ATTEND Physician Assistant | DX: S42.202A Unspecified fracture of upper end of left humerus, initial encounter for closed fracture (principal); M19.012 Primary osteoarthritis, left shoulder; X58.XXXA Exposure to other specified factors, initial encounter; Y92.9 Unspecified place or not applicable; Y93.9 Activity, unspecified; Y99.9 Unspecified external cause status ==

== ENCOUNTER → 2024-03-12 | Outpatient (CLI) | payer MEDICARE ==
[~2024-03-12] MED LIST changes: -CRAN400C PO; +CRANBERRY400 MG PO
== END ==
LOC: M SOG 07:54
PROVIDERS: ATTEND Physician Assistant
DX: M25.551 Pain in right hip (principal)

== ENCOUNTER → 2024-03-28 | Outpatient (CLI) | payer MEDICARE | LOC: M RAD 10:32 | PROVIDERS: ATTEND Physician Assistant | DX: M16.11 Unilateral primary osteoarthritis, right hip (principal) ==

== ENCOUNTER → 2024-03-28 | Outpatient (CLI) | payer MEDICARE | LOC: M RAD 10:28 | PROVIDERS: ATTEND Internal Medicine | DX: Z12.2 Encounter for screening for malignant neoplasm of respiratory organs (principal); F17.211 Nicotine dependence, cigarettes, in remission ==

== ENCOUNTER → 2025-04-08 | Outpatient (CLI) | payer MEDICARE | LOC: M WUC 11:14 | PROVIDERS: ATTEND Internal Medicine | DX: R05.9 Cough, unspecified (principal); R22.2 Localized swelling, mass and lump, trunk ==

== ENCOUNTER → 2025-05-07 | Outpatient (REF) | payer MEDICARE | LOC: M LAB REF 14:47 | PROVIDERS: ATTEND Internal Medicine | DX: R19.7 Diarrhea, unspecified (principal) ==

== ENCOUNTER → 2025-06-25 | Outpatient (REF) | payer MEDICARE | LOC: M LAB REF 16:43 | PROVIDERS: ATTEND Internal Medicine Gastroenterology | DX: R19.7 Diarrhea, unspecified (principal) ==

== ENCOUNTER → 2025-07-22 | Outpatient (REF) | payer MEDICARE | LOC: M LAB REF 11:43 | PROVIDERS: ATTEND Internal Medicine Gastroenterology | DX: R19.7 Diarrhea, unspecified (principal) ==

== ENCOUNTER → 2025-09-06 | Outpatient (CLI) | payer MEDICARE | LOC: M RAD 10:57 | PROVIDERS: ATTEND Internal Medicine | DX: R13.10 Dysphagia, unspecified (principal) ==